=== PATIENT | female | born 1990 | race Caucasian/White ===

== ENCOUNTER 2021-08-25 16:30 | Outpatient (CLI) | payer OTHER ==
--- NOTE | 2021-08-25 17:58 | Ultrasound Report ---
PROCEDURE: OB 14+ Weeks INDICATIONS: UNCERTAIN VIABILITY OUTSIDE/PRIOR DATING DATA: Last menstrual period (LMP): 04/26/2021. LMP-based estimated date of delivery (BART): 01/31/2022. First dating scan (date and location): 07/02/2021 in [place] Estimated date of delivery (BART) from first dating scan: 01/31/2022 by report. TECHNIQUE: Real-time scanning was performed of the fetus, with image documentation and biometric measurements. COMPARISON: None available. FINDINGS: General: A single intrauterine gestation is present. Presentation: Breech Placenta: Placental position is anterior, without previa. Amniotic fluid index: Not evaluated. heart rate: No heart motion was visualized. heart motion was also not detected by M-mode or color Doppler interrogation. Maternal cervical canal: 4.9 cm long; normal length is 2.5 cm or more. biometrics: Biparietal diameter: 3.3 cm, 16 weeks 1 day Head circumference: 12.8 cm, 16 weeks 3 days Abdominal circumference: 10.5 cm, 16 weeks 3 days Femur length: 2.0 cm, 15 weeks 6 days Estimated gestational age from initial scan: 17 weeks 2 days Composite gestational age from present scan: 16 weeks 2 days Estimated weight and percentile: 148 g, 4th percentile Measurement variability for biometric dating: +/- 10 days from 12-20 weeks gestation, +/- 2 weeks fro m 20-30 weeks gestation, +/- 3 weeks for 30 weeks gestation or later. IMPRESSION: 1. Single intrauterine with no heart motion identified suggestive of demise. 2. Findings reported to Dr. Patterson on 08/25/2021 at 5:10 PM by the lead cytogenetic technologist. Reviewed by: Kevin Vann MD on 08/25/2021 5:57 PM PST Approved by: Kevin Vann MD on 08/25/2021 5:57 PM PST Station ID: [id number]
== END 2021-08-25 16:31 | disposition home or self-care (01) ==
LOC: DI 16:30
PROVIDERS: ATTEND Nurse Practitioner Obstetrics & Gynecology
DX: O02.1 Missed abortion (principal); Z3A.16 16 weeks gestation of pregnancy

== ENCOUNTER 2021-08-27 09:01 | Inpatient (IN) | payer OTHER ==
[2021-08-27] MEDS ORDERED: CARBOPROST TROMETHAMINE 250 MCG/ML AMP IM PRN (10:16)
[2021-08-27] MEDS ORDERED: miSOPROStoL 200 MCG TABLET BC PRN (10:16)
[2021-08-27] MEDS ORDERED: miSOPROStoL 100 MCG TABLET VG ONE (10:16)
[2021-08-27] MEDS ORDERED: TRANEXAMIC ACID IN NACL 1,000 MG/100 ML BAG IV PRN (10:16)
[2021-08-27] MEDS ORDERED: METHYLERGONOVINE 0.2 MG/ML VIAL IM PRN (10:16)
[2021-08-27] MEDS ORDERED: LIDOCAINE-MPF 1% 30 ML VIAL ID PRN (10:16)
[2021-08-27] MEDS ORDERED: ONDANSETRON 4 MG/2 ML VIAL IVP PRN ×2 (10:16→12:05)
[2021-08-27] MEDS ORDERED: OXYTOCIN/SODIUM CHLORIDE 500 ML IV PRN (10:16)
[2021-08-27] MEDS ORDERED: OXYTOCIN 10 UNIT/ML VIAL IM PRN (10:16)
[2021-08-27] MEDS ORDERED: SODIUM CHLORIDE FLUSH 0.9% 10 ML SYRINGE IVP PRN (10:16)
[2021-08-27] MEDS ORDERED: fentaNYL 100 MCG/2 ML VIAL IVP PRN (10:16)
--- NOTE | 2021-08-27 10:36 | HISTORY & PHYSICAL EXAMINATION ---
Review of Systems - Constitutional Constitutional: reports: Fatigue. denies: Fever, Chills, Malaise - Eyes Eyes: denies: Pain, Blurred vision - Cardiovascular Cariovascular: denies: Irregular heart rate, Palpitations, Chest pain, Lightheadedness - Respiratory Respiratory: denies: Cough, SOB at rest - Gastrointestinal Gastrointestinal: denies: Constipation, Diarrhea, Change in bowel habits, Nausea, Vomiting - Integumentary Integumentary: denies: Rash, Pruritis - Neurological Neurological: denies: Headache Plan for Labor - Plan For Labor I expect patient to be DC'd or transferred within 96 hours.: Yes Plan for Labor: Rebekah is a 31yo @ 17.4wks gestation by LMP c/w 9.3wk U/S who presents for induction of labor secondary to missed . She presented 08/25/2021 for her initial visit and a bedside ultrasound revealed absence of heart motion. A formal ultrasound was ordered STAT and confirmed demise. She is understandably tearful. She is well supported by her Parker who is at the bedside. Dating criteria: LMP 04/26/2021 BART by LMP 01/31/2022 Initial U/S @ 9.3wks c/w LMP dating. (Did note a moderate-sized subchorionic hemorrhage measuring 6.1 x 1.9x 3.8cm) OB History: G1: 09/01/2017 VAVD @ 41.5wks, [id number], male G2: Current Medications: PNV Allergies: NKDA PMHx: unremarkable Surgical Hx: Leg/Hip (2000) Social Hx: Never smoker. No ETOH or IVDA. Family Hx: Diabetes - MGM, Aunt; AK<55 Father; PE - Father (caused ); CAD - PGF Genetic History: >3 SABs in patient's mother; no other genetic history in either father or mother Physical Exam: Normocephalic, atraumatic Heart RRR w/o M/G/R Lungs CTAB Abdomen soft and nontender Limited bedside transabdominal ultrasound reveals 16.2wk fetus with no heart motion Bilateral LE's no edema Tearful, appropriate Assessment: 31yo @ 17.4wks gestation by LMP, 16.2wks gestation by U/S with demise Blood type: A+ Plan: Admit for induction of labor IV start Initiate misoprostol for labor induction with starting dose of 600mcg VG misoprostol now followed by 400mcg VG misoprostol q 3 hours Epidural per maternal request. call center support representative physician notified and aware of patient and plan of care - acting in supportive role at this time.
[2021-08-27 10:53] LABS: BASOPHILS % (AUTO) 0.5 %; EOSINOPHILS # (AUTO) 0.1 10^3/uL (0.0-0.7); EOSINOPHILS % (AUTO) 0.8 %; HCT - HEMATOCRIT 34.6 % (37.0-47.0); HGB - HEMOGLOBIN 11.5 g/dL (12.0-16.0); LYMPHOCYTES # (AUTO) 1.2 10^3/uL (1.5-3.5); LYMPHOCYTES % (AUTO) 19.6 %; MEAN CORPUSCULAR HEMOGLOBIN 28.8 pg (27.0-31.0); MEAN CORPUSCULAR HGB CONC 33.2 g/dL (32.0-36.0); MEAN CORPUSCULAR VOLUME 86.5 fL (81.0-99.0); MEAN PLATELET VOLUME 10.8 fL (7.9-10.8); MONOCYTES # (AUTO) 0.4 10^3/uL (0.0-1.0); MONOCYTES % (AUTO) 5.9 %; NEUTROPHILS # (AUTO) 4.6 10^3/uL (1.5-6.6); NEUTROPHILS % (AUTO) 72.9 %; PLT - PLATELET COUNT 231 10^3/uL (130-450); RED CELL DISTRIBUTION WIDTH 13.3 % (12.0-15.0); WHITE BLOOD COUNT 6.3 x10^3/uL (4.8-10.8)
[2021-08-27] MEDS ORDERED: LACTATED RINGERS 500 ML IV ONE (11:00)
[2021-08-27] MEDS ORDERED: LACTATED RINGERS 1,000 ML ONE (11:08)
[2021-08-27] MEDS ORDERED: ROPIVACAINE 0.2% 200 MG/100 ML BAG EP ONE (11:11)
[2021-08-27] MEDS: LACTATED RINGERS 1,000 ML IV SCH ×2 (12:00→17:01)
[2021-08-27] MEDS ORDERED: ePHEDrine 50 MG/ML VIAL IVP PRN (12:05)
[2021-08-27] MEDS ORDERED: diphenhydrAMINE INJ 50 MG/ML VIAL IVP PRN (12:05)
[2021-08-27] MEDS ORDERED: METOCLOPRAMIDE 10 MG/2 ML VIAL IVP PRN (12:05)
[2021-08-27] MEDS ORDERED: NALOXONE 0.4 MG/ML VIAL IVP PRN (12:05)
[2021-08-27] MEDS ORDERED: NALBUPHINE 10 MG/ML AMP IVP PRN (12:05)
--- NOTE | 2021-08-27 12:07 | ANESTHESIA ---
Pre-Anesthesia VS, & Labs - Diagnosis demise 17wks - Procedure epidural for Vital Signs: Temp Pulse Resp BP Pulse Ox 36.9 C 64 16 120/53 L 08/27/21 11:48 08/27/21 10:16 08/27/21 10:16 08/27/21 10:16 Height: 5 ft 7.5 in Weight (kg): 97.522 kg Body Mass Index: 33.1 BMI Classification: Obese - NPO Last Fluid Intake: t/o day Last Food Intake: breakfast - Is Patient ?: Yes (demise) - Lab Results Current Lab Results: Laboratory Tests 08/27/21 10:30: WBC 6.3, RBC 4.00 L, Hgb 11.5 L, Hct 34.6 L, MCV 86.5, MCH 28.8, MCHC 33.2, RDW 13.3, Plt Count 231, MPV 10.8, Neut # (Auto) 4.6, Lymph # (Auto) 1.2 L, [place] # (Auto) 0.4, Eos # (Auto) 0.1, Baso # (Auto) 0.0, Absolute Nucleated RBC 0.00, Nucleated RBC % 0.0 Lab results reviewed: Yes Fish Bones: 08/27/21 10:30 Home Medications and Allergies Active Medications Carboprost Tromethamine (Carboprost Tromethamine 250 Mcg/Ml Amp) 250 mcg IM Q15M PRN PRN Reason: Step 4: Hemorrhage protocol Stop: 09/01/21 10:17 Fentanyl (Fentanyl 100 Mcg/2 Ml Vial) 50 mcg IVP Q1H PRN PRN Reason: PAIN Oxytocin/Sodium Chloride (Pitocin/Sodium Chloride) 500 mls @ 999 mls/hr IV PRN PRN; Protocol PRN Reason: POST- HEMORR PREVENTION Stop: 09/01/21 10:17 Tranexamic Acid (Tranexamic 1,000 Mg/100ml-Nacl) 1,000 mg in 100 mls @ 600 mls/hr IV .ONCE PRN PRN Reason: EBL >1200mL and within 3hr Stop: 09/01/21 10:17 Lidocaine HCl (Lidocaine-Mpf 1% 30 Ml Vial) 30 ml ID .ONCE PRN PRN Reason: PERINEAL REPAIR Stop: 09/01/21 10:17 Methylergonovine Maleate (Methylergonovine 0.2 Mg/Ml Vial) 0.2 mg IM .ONCE PRN PRN Reason: Step 2: Hemorrhage protocol Stop: 09/01/21 10:17 Misoprostol (Misoprostol 200 Mcg Tablet) 800 mcg BC .ONCE PRN PRN Reason: Step 3: Hemorrhage protocol Stop: 09/01/21 10:17 Ondansetron HCl (Ondansetron 4 Mg/2 Ml Vial) 4 mg IVP Q4HR PRN PRN Reason: Nausea / Vomiting Oxytocin (Oxytocin 10 Unit/Ml Vial) 10 unit IM .ONCE PRN PRN Reason: Step one: If no IV access Stop: 09/01/21 10:17 Sodium Chloride (Sodium Chloride Flush 0.9% 10 Ml Syringe) 10 ml IVP 0100,0900,1700 LULI Sodium Chloride (Sodium Chloride Flush 0.9% 10 Ml Syringe) 10 ml IVP PRN PRN PRN Reason: NEEDED PER PROVIDER ORDERS Allergies/Adverse Reactions: Allergies Allergy/AdvReac Type Severity Reaction Status Date / Time No Known Drug Allergies Allergy Verified 08/27/21 11:20 Anes History & Medical History - Anesthetic History Anesthesia Complications: reports: No previous complications Family history of Anesthesia Complications: Denies Family history of Malignant Hyperthermia: Denies - Medical History Cardiovascular: reports: None Gastrointestinal: reports: None Urinary: reports: None Neuro: reports: None Smoking Status: Never smoker Exam General: Alert, Oriented x3, Cooperative Dental: WNL Mouth Openin Fingerbreadth Neck Mobility: Normal Mallampati classification: II Respiratory: No respiratory distress Cardiovascular: Regular rate Neurological: Normal speech Mental/Cognitive Status: Alert/Oriented X3, Normal for patient Cognitive Status: Within normal limits Plan Anesthesia Type: Epidural Regional Block: Per Surgeon's request for Post Op pain control Consent for Procedure(s) Verified and Reviewed: Yes Code Status: Attempt Resuscitation ASA classification: 2-Mild systemic disease Is this case an emergency?: No
[2021-08-27] MEDS ORDERED: miSOPROStoL 200 MCG TABLET VG ONE (15:30)
[2021-08-27] MEDS ORDERED: fentaNYL 100 MCG/2 ML VIAL ONE (16:46)
[2021-08-27] MEDS ORDERED: SODIUM CHLORIDE 0.9% 10 ML VIAL IVP ONE (16:46)
[2021-08-27] MEDS ORDERED: LIDOCAINE-MPF 2% 5 ML VIAL ONE (16:46)
[2021-08-27] MEDS ORDERED: SODIUM CHLORIDE FLUSH 0.9% 10 ML SYRINGE IVP SCH (17:00)
--- NOTE | 2021-08-27 17:05 | CONSULTATION NOTE ---
Consultation Report: Call for new pain after Misoprostol dosing at noon. Sensory level assessed at L1. Epidural bolus of 100mcg Fentanyl, 10cc 1%Lidocaine. Pump settings adjusted to 12cc q 45 mins. Epidural bag also changed at this encounter.
[2021-08-27] MEDS ORDERED: miSOPROStoL 200 MCG TABLET BC ONE (18:42)
[2021-08-27] MEDS ORDERED: miSOPROStoL 100 MCG TABLET BC SCH (22:15)
--- NOTE | 2021-08-27 22:27 | PROVIDER PROGRESS NOTE ---
Subjective - Subjective Subjective: S: Feeling comfortable with her epidural. She is tearful understandably. She had a visit from her son which she says made her feel hopeful and improved her mood some. Her Parker is supportive at the bedside. O: S/p 600mcg VG misoprostol x once, then 400mcg BC misoprostol x 3 doses given 3 hours apart. A: 31yo @ 17.4wks gestation by LMP c/w 9.3wk U/S with intrauterine demise Induction of labor A positive P: Continue 400mcg BC misoprostol q 3 hours until delivery Consult with evp chief exploration officer physician. Repeat SVE in 3 hours or sooner PRN. Objective - Vital Signs/Intake & Output Vital Signs: Vital Signs x48h Temp Pulse Pulse Resp BP Pulse Ox 08/27/21 20:34 17 111/53 L 99 08/27/21 20:00 37.6 C 88 18 114/48 L 08/27/21 19:30 86 17 119/49 L 99 08/27/21 19:00 88 18 125/80 08/27/21 18:42 121 H 100 08/27/21 18:30 77 16 118/42 L 100 08/27/21 18:00 75 110/45 L 100 08/27/21 17:35 78 107/56 L 100 08/27/21 17:32 74 89/50 L 100 08/27/21 17:30 67 111/51 L 100 08/27/21 17:00 76 118/43 L 100 08/27/21 16:50 37.0 C 75 14 119/46 L 100 08/27/21 16:30 78 18 123/57 L 100 08/27/21 16:00 117/46 L 08/27/21 15:43 117/68 08/27/21 15:30 37.2 C 77 16 99 08/27/21 14:30 72 114/47 L Intake & Output: Intake & Output 08/24/21 08/25/21 08/26/21 08/27/21 23:59 23:59 23:59 23:59 Intake Total 2199.5 Output Total 1500 Balance 699.5 - Lab Results Fish Bones: 08/27/21 10:30 Other Labs: Lab Results x24hrs 08/27/21 08/27/21 08/27/21 Range/Units 11:17 10:30 10:30 WBC 6.3 (4.8-10.8) x10^3/uL RBC 4.00 L (4.20-5.40) 10^6/uL Hgb 11.5 L (12.0-16.0) g/dL Hct 34.6 L (37.0-47.0) % MCV 86.5 (81.0-99.0) fL MCH 28.8 (27.0-31.0) pg MCHC 33.2 (32.0-36.0) g/dL RDW 13.3 (12.0-15.0) % Plt Count 231 (130-450) 10^3/uL MPV 10.8 (7.9-10.8) fL Neut # (Auto) 4.6 (1.5-6.6) 10^3/uL Lymph # (Auto) 1.2 L (1.5-3.5) 10^3/uL [place] # (Auto) 0.4 (0.0-1.0) 10^3/uL Eos # (Auto) 0.1 (0.0-0.7) 10^3/uL Baso # (Auto) 0.0 (0.0-0.1) 10^3/uL Absolute Nucleated RBC 0.00 x10^3/uL Nucleated RBC % 0.0 /100WBC Blood Type A POSITIVE Blood Type Recheck A POSITIVE Antibody Screen NEGATIVE
[2021-08-27] MEDS: ROPIVACAINE 0.2% 200 MG/100 ML BAG EP PRN (22:29)
[2021-08-28] MEDS: miSOPROStoL 200 MCG TABLET BC SCH ×3 (01:25→08:45)
[2021-08-28] MEDS: LACTATED RINGERS 1,000 ML IV SCH ×2 (02:15→15:44)
[2021-08-28] MEDS: ROPIVACAINE 0.2% 200 MG/100 ML BAG EP PRN ×2 (03:53→15:30)
--- NOTE | 2021-08-28 07:27 | PROVIDER PROGRESS NOTE ---
Subjective - Subjective Subjective: S: Comfortable in bed with epidural. supportive at the bedside. Son sleeping on the sofa bed. Emotionally she is feeling like she just wants the process to be completed but is also understanding and desires to continue with current management plan. O: SVE: head and upper body through cervical os. Skull appears somewhat collapsed. Able to track lower part of fetus into cervical os which is medium consistency at external os and remains 1cm dilated at internal os. s/p 1 dose of 600mcg VG misoprostol and 5 doses of 400mcg BC misoprostol given q 3 hours A: 31yo with missed intrauterine demise at 16.2wks gestation (17.4wks by LMP and initial U/S) Second trimester induction of labor A positive P: Continue expectant management Continue 400mcg BC misoprostol q 3 hours. Consult with physician at 0800. Objective - Vital Signs/Intake & Output Vital Signs: Vital Signs x48h Temp Pulse Resp BP Pulse Ox 08/28/21 06:00 37.1 C 79 17 123/51 L 99 08/28/21 05:30 87 18 123/57 L 08/28/21 05:03 36.8 C 84 19 113/51 L 99 08/28/21 03:30 72 17 106/49 L 08/28/21 03:00 36.9 C 78 16 115/55 L 99 08/28/21 02:30 79 16 119/51 L 08/28/21 02:00 88 17 118/60 08/28/21 01:30 36.9 C 86 18 116/50 L 99 08/28/21 01:18 88 17 104/55 L 08/28/21 01:00 74 16 90/39 L 08/28/21 00:30 76 16 96/43 L 99 08/28/21 00:00 82 18 112/54 L 08/27/21 23:30 90 17 119/53 L Intake & Output: Intake & Output 08/25/21 08/26/21 08/27/21 08/28/21 23:59 23:59 23:59 23:59 Intake Total 2499.5 1073.333 Output Total 1900 550 Balance 599.5 523.333 - Lab Results Fish Bones: 08/27/21 10:30 Other Labs: Lab Results x24hrs 08/27/21 08/27/21 08/27/21 Range/Units 11:17 10:30 10:30 WBC 6.3 (4.8-10.8) x10^3/uL RBC 4.00 L (4.20-5.40) 10^6/uL Hgb 11.5 L (12.0-16.0) g/dL Hct 34.6 L (37.0-47.0) % MCV 86.5 (81.0-99.0) fL MCH 28.8 (27.0-31.0) pg MCHC 33.2 (32.0-36.0) g/dL RDW 13.3 (12.0-15.0) % Plt Count 231 (130-450) 10^3/uL MPV 10.8 (7.9-10.8) fL Neut # (Auto) 4.6 (1.5-6.6) 10^3/uL Lymph # (Auto) 1.2 L (1.5-3.5) 10^3/uL [place] # (Auto) 0.4 (0.0-1.0) 10^3/uL Eos # (Auto) 0.1 (0.0-0.7) 10^3/uL Baso # (Auto) 0.0 (0.0-0.1) 10^3/uL Absolute Nucleated RBC 0.00 x10^3/uL Nucleated RBC % 0.0 /100WBC Blood Type A POSITIVE Blood Type Recheck A POSITIVE Antibody Screen NEGATIVE
[2021-08-28] MEDS ORDERED: miSOPROStoL 200 MCG TABLET BC SCH (13:00)
--- NOTE | 2021-08-28 14:24 | PROVIDER PROGRESS NOTE ---
Subjective - Prog Note Date Prog Note Date: 08/28/21 Prog Note Time: 14:22 - Subjective Subjective: Assumed care from [place] ARRIAGA CNM at approximately 11:00. Patient is a 31 yo who presented for care at [id number] yo attely 17 weeks ega and was found ot have a demise. Patient was seen in clinic on 08/26/21. She is listed in [facility] as Rebekah [place]. had been complicated by first trimester bleeding. She had pres ented to an outside ED at approximately 9 wga for abdominal pain and had a larger than average subchorionic hemorrhage but no other abnormalities. She presented for initial OB at approximately 17 wga and was found to have a demise. She had a confirmatory US. Admitted in 08/27 for induction of labor. Dosing for misoprostol has been the followin/23 12:00 600 mcg VC 15:30 400 mcg VG 18:42 400 mcg BC 22:15 400 mcg BC 08/28 1:25 400 mcg BC 4:48 400 mcg BC 8:45 400 mcg BC Increased dosing to 600 mcg BC Q4H. Comfortable with epidural in place ROS: per HPI, otherwise remaining systems are negative PE: VS: 117/65 GEN: NAD HEENT: NCAT CV: RR RESP: nl effort ABD: S&NT/ND PELVIC: NEFG. Blood show. parts in vagina but not fully passed through the cervix EXT: WWP PSYCH: appropriate affect NEURO: A&O, epidural in place : parts in vaginal but has not passed fully through cervix. A/P: 31 yo at about 16+2 wga with demise IOL: Misoprostol administration as above -Giving miso 600 mcg BC Q4h -consider pitocin if no change in status after this dose. PAIN: Epidural in place -On clears PNC: Late to care -PNL not drawn; ordered today. Includes RPR -APLAS panel drawn for possible contribution to 2nd trimester loss -Had QUAD screen drawn, reviewed limitations of interpretation with patient and recommend cfDNA. Patient agreed and collected today -confirmed Rh positive Patient will take remains for burial Opting to send placenta to pathology Continue inpatient care. Objective - Vital Signs/Intake & Output Vital Signs: Vital Signs x48h Temp Pulse Resp BP Pulse Ox 08/28/21 08:03 74 18 127/55 L 100 08/28/21 07:30 17 130/59 L 08/28/21 07:00 98.4 F 78 16 120/59 L 99 08/28/21 06:30 82 17 107/51 L Intake & Output: Intake & Output 08/25/21 08/26/21 08/27/21 08/28/21 23:59 23:59 23:59 23:59 Intake Total 2499.5 1073.333 Output Total 1900 550 Balance 599.5 523.333 - Lab Results Fish Bones: 08/27/21 10:30 Other Labs: Lab Results x24hrs 08/27/21 Range/Units 11:17 SARS-CoV-2 IgG Ab 5.24 H (<1.00) index
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
[2021-08-28] MEDS ORDERED: OXYTOCIN 10 UNIT/ML VIAL IVP ONE (18:38)
[2021-08-28 19:32] LABS: ESTIMATED AVERAGE GLUCOSE 80 mg/dL (70-100); HEMOGLOBIN A1c% 4.4 % (4.27-6.07)
--- NOTE | 2021-08-28 19:49 | PROVIDER PROGRESS NOTE ---
Subjective - Prog Note Date Prog Note Date: 08/28/21 Prog Note Time: 19:47 - Subjective Subjective: Patient remains comfortable with epidural in place. SVE: 2/long/medium Umbilical cord decompressed but placenta placed high in uterus Has not yet delivered placenta. GIving pitocin 10 mU IM and will give it one hour. Anticipate moving forward with D&C if placenta remains intact in one hour. Objective - Vital Signs/Intake & Output Vital Signs: Vital Signs x48h Temp Pulse Resp BP Pulse Ox 08/28/21 19:00 98.2 F 75 18 145/69 H 100 08/28/21 17:00 98.4 F 86 18 132/64 H 99 08/28/21 15:00 117/65 08/28/21 14:55 120/50 L 08/28/21 12:00 126/60 Intake & Output: Intake & Output 08/25/21 08/26/21 08/27/21 08/28/21 23:59 23:59 23:59 23:59 Intake Total 2499.5 1988.333 Output Total 1900 2550 Balance 599.5 -561.667 - Lab Results Fish Bones: 08/27/21 10:30 Other Labs: Lab Results x24hrs 08/28/21 08/28/21 08/27/21 Range/Units 15:10 15:10 11:17 Estimat Average Glucose 80 (70-100) mg/dL Hemoglobin A1c % 4.4 (4.27-6.07) % Rubella IgG Antibody 13.0 IU/mL SARS-CoV-2 IgG Ab 5.24 H (<1.00) index
[2021-08-28] MEDS ORDERED: ceFAZolin 2 GM in SODIUM CHLORIDE 0.9% 100ML 100 ML IV ONE (21:12)
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
[2021-08-28] MEDS ORDERED: metroNIDAZOLE 500 MG/100 ML 500 MG/100 ML BAG IV SCH (21:13)
[2021-08-28] MEDS ORDERED: LIDOCAINE-PF 2% 10 ML AMP SUBQ ONE (21:29)
[2021-08-28] MEDS ORDERED: fentaNYL 100 MCG/2 ML VIAL ONE (21:52)
[2021-08-28] MEDS ORDERED: LIDOCAINE-MPF 1% 30 ML VIAL ONE (22:10)
[2021-08-28] MEDS ORDERED: BUPIVACAINE 0.5% PF 10 ML VIAL ONE (22:10)
[2021-08-28] MEDS ORDERED: BUPIVACAINE 0.5% PF 30 ML VIAL SUBQ ONE (22:17)
[2021-08-28] MEDS ORDERED: LIDOCAINE 1% 50 ML MDV SUBQ ONE (22:17)
[2021-08-28] MEDS ORDERED: SILVER NITRATE APPLICATOR TOP ONE ×2 (22:17→22:41)
[2021-08-28] MEDS ORDERED: METHYLERGONOVINE 0.2 MG/ML VIAL ONE (22:42)
[2021-08-28] MEDS ORDERED: LACTATED RINGERS 1,000 ML IV ONE (22:47)
[2021-08-28] MEDS ORDERED: MORPHINE 2 MG/ML CARPUJECT IVP PRN (22:56)
[2021-08-28] MEDS ORDERED: fentaNYL 100 MCG/2 ML VIAL IVP PRN (22:56)
[2021-08-28] MEDS ORDERED: ATROPINE ABBOJECT 1 MG/10 ML SYRINGE IVP PRN (22:56)
[2021-08-28] MEDS ORDERED: METOCLOPRAMIDE 10 MG/2 ML VIAL IVP PRN (22:56)
[2021-08-28] MEDS ORDERED: NALOXONE 0.4 MG/ML VIAL IVP PRN (22:56)
[2021-08-28] MEDS ORDERED: HYDROmorphone 0.5 MG/0.5 ML SYRINGE IVP PRN (22:56)
[2021-08-28] MEDS ORDERED: ONDANSETRON 4 MG/2 ML VIAL IVP PRN (22:56)
[2021-08-28] MEDS ORDERED: ePHEDrine 50 MG/ML VIAL IVP PRN (22:56)
--- NOTE | 2021-08-28 22:57 | ANESTHESIA POST OP EVALUATION ---
Anesthesia Post Eval - Post Anesthesia Eval Vitals: Last Vital Signs Temp 36.9 C 08/28/21 21:00 Pulse 78 08/28/21 22:50 Resp 16 08/28/21 22:50 BP 111/64 08/28/21 22:50 Pulse Ox 100 08/28/21 22:50 CV Function Including HR & BP: Stable Pain Control: Satisfactory Nausea & Vomiting: Negative Mental Status: Baseline Respiratory Status: Airway Patent Hydration Status: Satisfactory Anesthesia Complications: None
--- NOTE | 2021-08-28 22:58 | ANESTHESIA ---
Pre-Anesthesia VS, & Labs - Diagnosis retained placenta - Procedure Suction D&C Vital Signs: Temp Pulse Resp BP Pulse Ox 36.9 C 78 16 111/64 100 08/28/21 21:00 08/28/21 22:50 08/28/21 22:50 08/28/21 22:50 08/28/21 22:50 Height: 5 ft 7.5 in Weight (kg): 97.522 kg Body Mass Index: 33.1 BMI Classification: Obese - NPO Other - Is Patient ?: Yes - Lab Results Current Lab Results: Laboratory Tests 08/28/21 15:10: Estimat Average Glucose 80, Hemoglobin A1c % 4.4 08/27/21 11:17: Blood Type A POSITIVE, Antibody Screen NEGATIVE, Crossmatch IS Only See Detail 08/27/21 10:30: Blood Type Recheck A POSITIVE 08/27/21 10:30: WBC 6.3, RBC 4.00 L, Hgb 11.5 L, Hct 34.6 L, MCV 86.5, MCH 28.8, MCHC 33.2, RDW 13.3, Plt Count 231, MPV 10.8, Neut # (Auto) 4.6, Lymph # (Auto) 1.2 L, [place] # (Auto) 0.4, Eos # (Auto) 0.1, Baso # (Auto) 0.0, Absolute Nucleated RBC 0.00, Nucleated RBC % 0.0 Lab results reviewed: Yes Fish Bones: 08/27/21 10:30 Home Medications and Allergies Active Medications Carboprost Tromethamine (Carboprost Tromethamine 250 Mcg/Ml Amp) 250 mcg IM Q15M PRN PRN Reason: Step 4: Hemorrhage protocol Stop: 09/01/21 10:17 Diphenhydramine HCl (Diphenhydramine Inj 50 Mg/Ml Vial) 12.5 - 25 mg IVP Q6HR PRN PRN Reason: ITCHING Ephedrine Sulfate (Ephedrine 50 Mg/Ml Vial) 5 mg IVP Q5M PRN PRN Reason: For SBP<100;give until SBP>100 Fentanyl (Fentanyl 100 Mcg/2 Ml Vial) 50 mcg IVP Q1H PRN PRN Reason: PAIN Oxytocin/Sodium Chloride (Pitocin/Sodium Chloride) 500 mls @ 999 mls/hr IV PRN PRN; Protocol PRN Reason: POST- HEMORR PREVENTION Stop: 09/01/21 10:17 Tranexamic Acid (Tranexamic 1,000 Mg/100ml-Nacl) 1,000 mg in 100 mls @ 600 mls/hr IV .ONCE PRN PRN Reason: EBL >1200mL and within 3hr Stop: 09/01/21 10:17 Ropivacaine (Naropin 0.2%) 200 mg in 100 mls @ 0 mls/hr EP PRN PRN; Protocol PRN Reason: PAIN Last Admin: 08/28/21 15:30 Dose: 10 mls/hr Documented by: Lactated Ringer's (Lr) 1,000 mls @ 100 mls/hr IV .Q10H LULI Last Admin: 08/28/21 15:44 Dose: 100 mls/hr Documented by: Metronidazole (Flagyl 500 Mg/100 Ml) 500 mg in 100 mls @ 100 mls/hr IV ONCE LULI Stop: 08/29/21 21:12 Lidocaine HCl (Lidocaine-Mpf 1% 30 Ml Vial) 30 ml ID .ONCE PRN PRN Reason: PERINEAL REPAIR Stop: 09/01/21 10:17 Methylergonovine Maleate (Methylergonovine 0.2 Mg/Ml Vial) 0.2 mg IM .ONCE PRN PRN Reason: Step 2: Hemorrhage protocol Stop: 09/01/21 10:17 Metoclopramide HCl (Metoclopramide 10 Mg/2 Ml Vial) 10 mg IVP Q6HR PRN PRN Reason: Nausea / Vomiting Misoprostol (Misoprostol 200 Mcg Tablet) 600 mcg BC Q4H LULI Last Admin: 08/28/21 14:00 Dose: 600 mcg Documented by: Nalbuphine HCl (Nalbuphine 10 Mg/Ml Amp) 2.5 - 5 mg IVP Q4H PRN PRN Reason: ITCHING Naloxone HCl (Naloxone 0.4 Mg/Ml Vial) 0.1 mg IVP Q2M PRN PRN Reason: RR<8 Ondansetron HCl (Ondansetron 4 Mg/2 Ml Vial) 4 mg IVP Q4HR PRN PRN Reason: Nausea / Vomiting Ondansetron HCl (Ondansetron 4 Mg/2 Ml Vial) 4 mg IVP Q6HR PRN PRN Reason: Nausea / Vomiting Oxytocin (Oxytocin 10 Unit/Ml Vial) 10 unit IM .ONCE PRN PRN Reason: Step one: If no IV access Stop: 09/01/21 10:17 Sodium Chloride (Sodium Chloride Flush 0.9% 10 Ml Syringe) 10 ml IVP 0100,0900,1700 LULI Sodium Chloride (Sodium Chloride Flush 0.9% 10 Ml Syringe) 10 ml IVP PRN PRN PRN Reason: NEEDED PER PROVIDER ORDERS Allergies/Adverse Reactions: Allergies Allergy/AdvReac Type Severity Reaction Status Date / Time No Known Drug Allergies Allergy Verified 08/27/21 11:20 Anes History & Medical History - Anesthetic History Anesthesia Complications: reports: No previous complications Family history of Anesthesia Complications: Denies Family history of Malignant Hyperthermia: Denies - Medical History Cardiovascular: reports: None Gastrointestinal: reports: None Urinary: reports: None Neuro: reports: None Smoking Status: Never smoker Exam General: Alert, Oriented x3, Cooperative, No acute distress Dental: WNL Plan Anesthesia Type: Epidural Consent for Procedure(s) Verified and Reviewed: Yes Code Status: Attempt Resuscitation ASA classification: 2-Mild systemic disease Is this case an emergency?: Yes
[2021-08-28] MEDS ORDERED: LACTATED RINGERS 1,000 ML IV SCH (23:00)
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
[2021-08-28] MEDS ORDERED: oxyCODONE/ACET 5/325 Prepack 4 PO STA (23:02)
[2021-08-28] MEDS ORDERED: MEASLES,MUMPS & RUBELLA VACC 0.5 ML VIAL SUBQ ONE (23:02)
--- NOTE | 2021-08-29 01:13 | Discharge Plan ---
Discharge Plan Problem Reviewed?: Yes Disposition: Home, Self Care Condition: Good Prescriptions: Acetaminophen [Acetaminophen Extra Strength] 1,000 mg PO Q8H PRN #60 tablet PRN Reason: Pain Docusate Sodium 100Mg Capsule [Colace 100Mg Capsule] 100 - 200 mg PO BID PRN #60 cap PRN Reason: Constipation Ibuprofen [Motrin] 600 mg PO Q6H PRN #60 tab PRN Reason: Pain Diet: Regular Activity Restrictions: Additional Comments Shower Restrictions: Yes (No tub baths or hot tubs for 4 weeks) Additional Instructions or Follow Up instructions: Nothing in the vagina for 6 weeks: No intercourse, tampons, douching Call for: -Fever greater than 100.5 -Pain that does not improve with pain medication -Heavy bleeding in which you are soaking a pad an hour for 2 hours in a row -Pain in the legs (especially one sided), swelling in one leg and not the other, or difficulty/pain with breathing. No tub baths or hot tubs for 4 weeks No Smoking: If you smoke, Please STOP! Call for help. Follow-up with: Jenn Carlson MD [Provider Admit Priv/Credential] -
[2021-08-29 02:23] VITALS: BP 118/54
[2021-08-29 12:41] LABS: HEPATITIS B SURFACE ANTIGEN NON-REACTIVE (NON-REACTIVE); HEPATITIS C ANTIBODY NON-REACTIVE (NON-REACTIVE)
[2021-08-30 12:51] LABS: HIV AG/AB 4TH GEN NON-REACTIVE (NON-REACTIVE)
[2021-09-01 08:36] LABS: AFP MOM 1.58; AGE RISK DOWN SYNDROME 1 IN 486; CALC'D GESTATIONAL AGE 17.6 weeks; CIGARETTE SMOKER? NOT GIVEN; DONOR AGE: EGG RETRIEVAL NOT GIVEN; DONOR EGG NO; ESTRIOL MOM <0.09; HX OF NEURAL TUBE DEFECTS NO; INHIBIN A MOM 0.51; INSULIN DEPEND DIABETIC NO; MATERNAL WEIGHT 229 lbs; MSS DOWN SYNDROME RISK 1 IN 602; MSS3 TRISOMY 18 RISK 1 IN 204; NUMBER OF FETUSES 1; PREV PREGNANCY DOWN SYND NO; RISK FOR ONTD 1 IN 2212
--- NOTE | 2021-09-01 12:19 | PROVIDER PROGRESS NOTE ---
Subjective - Prog Note Date Prog Note Date: 08/29/21 Prog Note Time: 01:30 - Subjective Subjective: Patient was doing well post op. Up and ambulating. Tolerating po. Voiding. Pain well managed. Bleeding minimal/ remains were packaged for burial. Patient desires discharge to home Objective - Vital Signs/Intake & Output Reviewed Vital Signs: Yes Vital Signs: 118/54 77 98.6 Intake & Output: Intake & Output 08/29/21 08/30/21 08/31/21 09/01/21 23:59 23:59 23:59 23:59 Output Total 250 Balance -250 - Objective General Appearance: positive: No acute distress Respiratory: positive: No respiratory distress, Breath sounds nml Cardiovascular: positive: Regular rate & rhythm Abdomen: positive: Non-tender, No distention, Other (soft) Skin: positive: Color nml Extremities: positive: Non-tender, No pedal edema Neurologic/Psychiatric: positive: Oriented x3, Other (appropriate affect) - Lab Results Fish Bones: 08/27/21 10:30 Other Labs: Lab Results x24hrs 08/27/21 Range/Units 11:17 Family Origin of Mother OTHER Repeat Sample NO Gestational Age (Calc) 17.6 weeks Estimated Delivery Date 01/31/2022 Est Date Determined By LMP Maternal Weight (lbs) 229 lbs Insulin Depend Diabetes NO Cigarette Smoker (Maternal) Text NOT GIVEN Down Syndrome History NO Number of Fetuses 1 IVF NOT GIVEN Donor Age or NOT GIVEN Quad Test Interpret SEE NOTE Maternal AFP Screen 51.7 ng/mL AFP MoM 1.58 Maternal Serum HCG 20.00 IU/mL HCG Adjusted MoM 0.90 Unconj (Free) Estriol <0.10 ng/mL Unconj Estriol MoM <0.09 Inhibin A MoM 0.51 Mater Dimeric Inhibin A 66 pg/mL Triple Test Comments SEE NOTE Down's Maternal Age Risk 1 IN 486 Down Syndrome Risk 1 IN 602 Trisomy 13 Risk 1 IN 204 Mother History NTD NO NTD Risk 1 IN 2212 Maternal Scrn Comment See Below Assessment/Plan - Problem List (1) Retained placenta Impression: Patient is s/p suciton D&C Placenta removed in entirety Recovering well from procedure (2) demise Impression: 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 -S/p Suction D&C -Remains released to family for burial Rh positive Rubella non-immue, declined MMR Warning signs reviewed DC to home FU in clinic in one week
== END 2021-08-29 02:20 | disposition home or self-care (01) | DRG 770 ==
LOC: FBP 09:01 → WFO 09:01 → OBS 09:04 → WFO 09:04 → OBS 10:15 → WFO 10:15 → UNDOADMIN 10:16 → OBS 10:16 → UNDODISIN 08-29 02:20
PROVIDERS: ADMIT Nurse Practitioner Obstetrics & Gynecology; ATTEND Nurse Practitioner Obstetrics & Gynecology
PROC: 3E0P7VZ Introduction of Hormone into Female Reproductive, Via Natural or Artificial Opening (ICD-10-PCS; 2021-08-27)
PROC: 3E033VJ Introduction of Other Hormone into Peripheral Vein, Percutaneous Approach (ICD-10-PCS; 2021-08-27)
PROC: 10D17ZZ Extraction of Products of Conception, Retained, Via Natural or Artificial Opening (ICD-10-PCS; 2021-08-28)
PROC: 3E0234Z Introduction of Serum, Toxoid and Vaccine into Muscle, Percutaneous Approach (ICD-10-PCS; 2021-08-28)
PROC: 10E0XZZ Delivery of Products of Conception, External Approach (ICD-10-PCS; principal; 2021-08-28 21:30)
DX: O02.1 Missed abortion (principal); O73.0 Retained placenta without hemorrhage; Z3A.17 17 weeks gestation of pregnancy; Z23 Encounter for immunization
CPT/HCPCS: 36415; 81511; 81599; 83036; 85025; 85613; 85730; 86146; 86147; 86592; 86762; 86769; 86803; 86850; 86900; 86901; 86920; 87340; 87389; A9270; J2210; J7120

== ENCOUNTER 2021-09-15 15:41 | Outpatient (CLI) | payer OTHER ==
[2021-09-15 16:11] LABS: HCT - HEMATOCRIT 36.7 % (37.0-47.0); HGB - HEMOGLOBIN 12.3 g/dL (12.0-16.0); MEAN CORPUSCULAR HEMOGLOBIN 28.3 pg (27.0-31.0); MEAN CORPUSCULAR HGB CONC 33.5 g/dL (32.0-36.0); MEAN CORPUSCULAR VOLUME 84.6 fL (81.0-99.0); MEAN PLATELET VOLUME 10.3 fL (7.9-10.8); RED BLOOD COUNT 4.34 10^6/uL (4.20-5.40); RED CELL DISTRIBUTION WIDTH 12.7 % (12.0-15.0); WHITE BLOOD COUNT 7.1 x10^3/uL (4.8-10.8)
[2021-09-15 16:37] LABS: THYROID STIMULATING HORMONE 1.68 uIU/mL (0.34-5.60)
[2021-09-15 16:39] LABS: FREE T4 (FREE THYROXINE) 0.96 ng/dL (0.58-1.64)
== END 2021-09-15 15:42 | disposition home or self-care (01) ==
LOC: LAB 15:41
PROVIDERS: ATTEND Nurse Practitioner Obstetrics & Gynecology
DX: R00.0 Tachycardia, unspecified (principal)
CPT/HCPCS: 36415; 84439; 84443; 85027

== ENCOUNTER 2021-09-18 15:14 | Outpatient (CLI) | payer OTHER | END 2021-09-18 15:15 | disposition home or self-care (01) | LOC: LAB 15:14 | PROVIDERS: ATTEND Nurse Practitioner Obstetrics & Gynecology | DX: R00.0 Tachycardia, unspecified (principal); O36.4XX0 Maternal care for intrauterine death, not applicable or unspecified | CPT/HCPCS: 36415; 81599; 83789; 84144 ==

== ENCOUNTER 2021-09-29 14:53 | Outpatient (CLI) | payer OTHER ==
[2021-09-29 16:53] LABS: ALBUMIN 3.9 g/dL (3.2-5.5); ALBUMIN/GLOBULIN RATIO 1.3 (1.0-2.2); BILIRUBIN,TOTAL 0.4 mg/dL (0.2-1.0); CALCIUM 8.9 mg/dL (8.5-10.3); CREATININE 0.6 mg/dL (0.4-1.0); POTASSIUM 3.9 mmol/L (3.5-5.0); TOTAL PROTEIN 6.8 g/dL (6.7-8.2)
== END 2021-09-29 14:54 | disposition home or self-care (01) ==
LOC: LAB 14:53
PROVIDERS: ATTEND Nurse Practitioner Obstetrics & Gynecology
DX: R00.0 Tachycardia, unspecified (principal); O36.4XX0 Maternal care for intrauterine death, not applicable or unspecified
CPT/HCPCS: 36415; 80053; 81599; 84144; 84702; 86762

== ENCOUNTER 2022-05-14 13:32 | Outpatient (CLI) | payer OTHER ==
[2022-05-14 13:53] LABS: BASOPHILS % (AUTO) 0.6 %; EOSINOPHILS # (AUTO) 0.1 10^3/uL (0.0-0.7); EOSINOPHILS % (AUTO) 1.8 %; HCT - HEMATOCRIT 32.1 % (37.0-47.0); LYMPHOCYTES # (AUTO) 1.7 10^3/uL (1.5-3.5); LYMPHOCYTES % (AUTO) 24.2 %; MEAN CORPUSCULAR HEMOGLOBIN 26.9 pg (27.0-31.0); MEAN CORPUSCULAR HGB CONC 34.3 g/dL (32.0-36.0); MEAN CORPUSCULAR VOLUME 78.5 fL (81.0-99.0); MEAN PLATELET VOLUME 10.2 fL (7.9-10.8); MONOCYTES # (AUTO) 0.5 10^3/uL (0.0-1.0); MONOCYTES % (AUTO) 6.8 %; NEUTROPHILS # (AUTO) 4.7 10^3/uL (1.5-6.6); NEUTROPHILS % (AUTO) 66.3 %; PLT - PLATELET COUNT 249 10^3/uL (130-450); RED BLOOD COUNT 4.09 10^6/uL (4.20-5.40); RED CELL DISTRIBUTION WIDTH 14.1 % (12.0-15.0); WHITE BLOOD COUNT 7.1 x10^3/uL (4.8-10.8)
[2022-05-15 06:08] LABS: HBsAG SCREEN Negative (Negative); HCV AB 0.4 s/co ratio (0.0-0.9)
[2022-05-15 08:10] LABS: RPR Non Reactive (Non Reactive)
[2022-05-15 09:09] LABS: VARICELLA-ZOSTER AB IGG <135 index (Immune >165)
[2022-05-15 10:08] LABS: HIV SCREEN 4TH GENERATION Non Reactive (Non Reactive)
== END 2022-05-14 13:33 | disposition home or self-care (01) ==
LOC: LAB 13:32
PROVIDERS: ATTEND Nurse Practitioner Obstetrics & Gynecology
DX: Z36.89 Encounter for other specified antenatal screening (principal)
CPT/HCPCS: 36415; 85025; 86592; 86762; 86787; 86803; 86850; 86900; 86901; 87340; 87389

== ENCOUNTER 2022-08-31 13:10 | Outpatient (CLI) | payer OTHER ==
[2022-08-31 14:21] LABS: HCT - HEMATOCRIT 28.4 % (37.0-47.0); MEAN CORPUSCULAR HEMOGLOBIN 25.8 pg (27.0-31.0); MEAN CORPUSCULAR HGB CONC 31.7 g/dL (32.0-36.0); MEAN CORPUSCULAR VOLUME 81.4 fL (81.0-99.0); RED BLOOD COUNT 3.49 10^6/uL (4.20-5.40); RED CELL DISTRIBUTION WIDTH 14.2 % (12.0-15.0); WHITE BLOOD COUNT 8.8 x10^3/uL (4.8-10.8)
== END 2022-08-31 13:11 | disposition home or self-care (01) ==
LOC: LAB 13:10
PROVIDERS: ATTEND Nurse Practitioner Obstetrics & Gynecology
DX: Z36.9 Encounter for antenatal screening, unspecified (principal)
CPT/HCPCS: 36415; 82950; 85027

== ENCOUNTER 2022-09-02 14:06 | Outpatient (CLI) | payer OTHER ==
[2022-09-02] MEDS ORDERED: FERRIC GLUCONATE 125 MG in SODIUM CHLORIDE 0.9% 100ML 100 ML IV ONE (14:11)
[2022-09-02 15:00] VITALS: BP 126/61
== END 2022-09-02 16:36 | disposition home or self-care (01) ==
LOC: WFO 14:06 → FBP 14:08 → WFO 16:36
PROVIDERS: ATTEND Obstetrics & Gynecology
DX: O99.019 Anemia complicating pregnancy, unspecified trimester (principal)
CPT/HCPCS: 96365; J2916

== ENCOUNTER 2022-10-06 16:00 | Outpatient (CLI) | payer BC ==
[2022-10-06 16:22] LABS: HCT - HEMATOCRIT 28.8 % (37.0-47.0); HGB - HEMOGLOBIN 9.2 g/dL (12.0-16.0); MEAN CORPUSCULAR HEMOGLOBIN 25.6 pg (27.0-31.0); MEAN CORPUSCULAR HGB CONC 31.9 g/dL (32.0-36.0); MEAN CORPUSCULAR VOLUME 80.2 fL (81.0-99.0); RED BLOOD COUNT 3.59 10^6/uL (4.20-5.40); WHITE BLOOD COUNT 7.1 x10^3/uL (4.8-10.8)
== END 2022-10-06 16:01 | disposition home or self-care (01) ==
LOC: LAB 16:00
PROVIDERS: ATTEND Nurse Practitioner Obstetrics & Gynecology
DX: O99.013 Anemia complicating pregnancy, third trimester (principal)
CPT/HCPCS: 36415; 85027

== ENCOUNTER 2022-10-22 14:34 | Outpatient (CLI) | payer BC ==
[2022-10-22] MEDS ORDERED: FERRIC GLUCONATE 125 MG in SODIUM CHLORIDE 0.9% 100ML 100 ML IV ONE (14:42)
[2022-10-22 14:56] VITALS: BP 127/54
== END 2022-10-22 17:02 | disposition home or self-care (01) ==
LOC: WFO 14:34 → FBP 14:34 → WFO 17:02
PROVIDERS: ATTEND Nurse Practitioner Obstetrics & Gynecology
DX: O99.013 Anemia complicating pregnancy, third trimester (principal); Z3A.00 Weeks of gestation of pregnancy not specified
CPT/HCPCS: 96365; J2916

== ENCOUNTER 2022-11-12 08:53 | Outpatient (CLI) | payer BC ==
[2022-11-12] MEDS ORDERED: SODIUM CHLORIDE FLUSH 0.9% 10 ML SYRINGE IVP PRN (09:05)
[2022-11-12] MEDS ORDERED: TERBUTALINE 1 MG/ML VIAL SUBQ PRN (09:05)
[2022-11-12] MEDS ORDERED: fentaNYL 100 MCG/2 ML VIAL IVP PRN (09:05)
[2022-11-12] MEDS ORDERED: ONDANSETRON 4 MG/2 ML VIAL IVP PRN (09:05)
--- NOTE | 2022-11-12 09:25 | HISTORY & PHYSICAL EXAMINATION ---
Admit History - : 3 Parity: 1 : 1 Care: positive: [facility] Smoking Status: Never smoker - Other Maternal History Other Maternal History: HPI: Patient is a 32-year-old -0-1-1 at 38 weeks 6 days gestation presenting for external cephalic version. She has good movement. Denies loss of fluid. No LEMON/BV or RUQP. No vaginal bleeding. Denies nausea and vomiting. Denies urinary urgency or dysuria. All other symptoms reviewed and were negative except per HPI. PMH Unremarkable PSH Leg hip surgery, 2000 OB History -0-1-1 1. 09/01/2017, vacuum-assisted vaginal delivery, 41 weeks 5 days, 7 pounds 15 ounces, male 2. 10/29/2020, demise, 17 weeks 4 days SH Denies tobacco, alcohol, drugs Family History Maternal grandmother: Diabetes Aunt, diabetes Father: [place], pulmonary embolism Paternal grandfather:: Coronary artery disease Allergies No known drug allergies Medications vitamins Physical exam: General: Alert, oriented, no acute distress Head: Normal cephalic atraumatic Eyes: PERRLA, extraocular motions intact. Respiratory: Normal rate of respiration. No accessory muscle use, normal respiratory effort. Cardiovascular: Regular rate and rhythm Abdomen: Gravid, nontender, nondistended Extremities: Normal range of motion Neuro: Oriented x3. Normal movements Psych: Appropriate mood and affect. Normal judgment and insight Bedside ultrasound: Siddharth breech presentation, head to maternal right, spine up FHT: 150 beats minute baseline, moderate variability, accelerations present, no decelerations. Reactive NST (Performed 11/12/22, read 11/12/22) [place]: Quiescent Plan 32-year-old -0-1-1 at 38 weeks 6 days gestation presents for her external cephalic version 1. malpresentation -Plan for external cephalic version. Patient was counseled the risk, benefits, alternatives of external cephalic version. Patient was offered primary section, but discussed the risks of surgery or greater than vaginal delivery, but likely safer for her fetus. The overall risk was discussed at an adverse event at approximately 5 to 6%. Risk of major events was far less than 1%. The greatest risk is changes in heart rate which are usually transitory. She agrees and would like to proceed with version. She does not want a regional block for this. We discussed that this could increase chance of success, but she would like to try without it. 2. 38 weeks gestation 3. History of 17-week IUFD. Meds/Allgy - Home Medications Home Medications: Ambulatory Orders Medication Instructions Recorded Confirmed Acetaminophen [Acetaminophen Extra 1,000 mg PO Q8H PRN #60 tablet 08/28/21 Strength] Docusate Sodium 100Mg Capsule 100 - 200 mg PO BID PRN #60 cap 08/28/21 [Colace 100Mg Capsule] Ibuprofen [Motrin] 600 mg PO Q6H PRN #60 tab 08/28/21 - Allergies Allergies/Adverse Reactions: Allergies Allergy/AdvReac Type Severity Reaction Status Date / Time No Known Drug Allergies Allergy Verified 08/27/21 11:20
[2022-11-12 09:26] VITALS: BP 123/66
[2022-11-12 09:40] LABS: BASOPHILS % (AUTO) 0.5 %; EOSINOPHILS # (AUTO) 0.1 10^3/uL (0.0-0.7); EOSINOPHILS % (AUTO) 1.1 %; HCT - HEMATOCRIT 28.9 % (37.0-47.0); HGB - HEMOGLOBIN 9.4 g/dL (12.0-16.0); LYMPHOCYTES # (AUTO) 1.2 10^3/uL (1.5-3.5); LYMPHOCYTES % (AUTO) 20.5 %; MEAN CORPUSCULAR HEMOGLOBIN 25.5 pg (27.0-31.0); MEAN CORPUSCULAR HGB CONC 32.5 g/dL (32.0-36.0); MEAN CORPUSCULAR VOLUME 78.3 fL (81.0-99.0); MEAN PLATELET VOLUME 10.8 fL (7.9-10.8); MONOCYTES # (AUTO) 0.5 10^3/uL (0.0-1.0); MONOCYTES % (AUTO) 8.2 %; NEUTROPHILS # (AUTO) 3.9 10^3/uL (1.5-6.6); NEUTROPHILS % (AUTO) 68.8 %; PLT - PLATELET COUNT 205 10^3/uL (130-450); RED BLOOD COUNT 3.69 10^6/uL (4.20-5.40); RED CELL DISTRIBUTION WIDTH 15.9 % (12.0-15.0); WHITE BLOOD COUNT 5.6 x10^3/uL (4.8-10.8)
[2022-11-12] MEDS ORDERED: MINERAL OIL LIGHT 10 ML TOP SCH (10:00)
[2022-11-12] MEDS ORDERED: FERRIC GLUCONATE 125 MG in SODIUM CHLORIDE 0.9% 100ML 100 ML IV ONE (10:05)
--- NOTE | 2022-11-12 12:00 | PROCEDURE REPORT ---
Hospitalist Procedure Note - Procedure Note Procedure Note: Procedure date: 11/12/2022 Procedure: External cephalic version Indication: Breech presentation, 38 weeks gestation Patient consent: Patient consented to the risks of external cephalic version including the risk of heart rate changes, bleeding, placental abruption, rupture membranes, emergency section, cord prolapse, hemorrhage, stillbirth. Discussed the benefits [place] avoiding a planned section. Discussed we are not successful we will abandon procedure and plan a section. Patient agrees to this and desires to proceed. Anesthesia: None Complications: None Estimated blood loss: None Postop diagnosis: Successful external cephalic version, cephalic presentation, 38 weeks gestation Procedure summary: Patient is a 32-year-old -0-1-1 at 38 weeks 6 days gestation who presented for an external cephalic version for breech presentation. Fetus has been variable and was cephalic last week and the week prior at 36 and 37 weeks. She has been coughing a lot and noted to be on hands and knees coughing then felt hiccups in a different location. She was taken to the triage room where spinal anesthesia was adequate. Under ultrasound guidance, the fetus was noted to be in breech presentation with head to maternal right upper quadrant and baby in opal breech position. The patient was given terbutaline for uterine relaxation. Using gentle, steady pressure, the head was rotated counterclockwise as the buttocks was lifted out of the pelvis. Intermittent ultrasound was used to confirm movement. Overall the procedure took approximately 10 minutes. Ultrasound confirmed cephalic presentation. A belly binder was placed until the effects of the terbutaline wore off. Patient was monitored with a reactive NST after the procedure. I appreciate the assistance of BART Cat during this procedure, and the assistance in retraction, visualization, dissection, and overall assistance during the case were instrumental to the patient's wellbeing.
--- NOTE | 2022-11-12 15:24 | PROVIDER PROGRESS NOTE ---
Subjective - Subjective Subjective: After terbutaline was given adequate time to wear off, ultrasound was performed again, and noted that the fetus had returned to breech presentation. Cervix was examined and found to be closed. Discussed the patient that we will likely try a version again next week, ideally a time where cervix is more dilated and we are able to break water after cephalic presentation. We did discuss that if she labors, this will become an more urgent matter. If her water breaks, also likely make it possible for version and that she should come urgently as the risk of prolapse is greater with a breech presentation. Patient has a follow-up appointment [facility] on Tuesday. Objective - Vital Signs/Intake & Output Vital Signs: Vital Signs x48h Temp Pulse Resp BP 11/12/22 12:15 98.8 F 99 18 123/66 11/12/22 09:07 98.8 F 99 18 123/66 Intake & Output: Intake & Output 11/09/22 11/10/22 11/11/22 11/12/22 23:59 23:59 23:59 23:59 Intake Total 110 Balance 110 - Lab Results Fish Bones: 11/12/22 09:28 Other Labs: Lab Results x24hrs 11/12/22 Range/Units 09:28 WBC 5.6 (4.8-10.8) x10^3/uL RBC 3.69 L (4.20-5.40) 10^6/uL Hgb 9.4 L (12.0-16.0) g/dL Hct 28.9 L (37.0-47.0) % MCV 78.3 L (81.0-99.0) fL MCH 25.5 L (27.0-31.0) pg MCHC 32.5 (32.0-36.0) g/dL RDW 15.9 H (12.0-15.0) % Plt Count 205 (130-450) 10^3/uL MPV 10.8 (7.9-10.8) fL Neut # (Auto) 3.9 (1.5-6.6) 10^3/uL Lymph # (Auto) 1.2 L (1.5-3.5) 10^3/uL [place] # (Auto) 0.5 (0.0-1.0) 10^3/uL Eos # (Auto) 0.1 (0.0-0.7) 10^3/uL Baso # (Auto) 0.0 (0.0-0.1) 10^3/uL Absolute Nucleated RBC 0.00 x10^3/uL Nucleated RBC % 0.0 /100WBC
--- NOTE | 2022-11-19 15:45 | PROVIDER PROGRESS NOTE ---
Subjective - Subjective Subjective: Pt tolerating infusion well. FINAL DIAGNOSIS: Anemia complicating , third trimester Objective - Lab Results Fish Bones: 11/12/22 09:28
== END 2022-11-12 12:10 | disposition home or self-care (01) ==
LOC: WFO 08:53 → FBP 08:56 → WFO 12:10
PROVIDERS: ATTEND Obstetrics & Gynecology
DX: O32.1XX0 Maternal care for breech presentation, not applicable or unspecified (principal); O99.013 Anemia complicating pregnancy, third trimester; Z3A.38 38 weeks gestation of pregnancy
CPT/HCPCS: 59025; 59412; 85025; 96365; J2916; 86850; 86900; 86901

== ENCOUNTER 2022-11-19 15:59 | Outpatient (CLI) | payer BC ==
[2022-11-19] MEDS ORDERED: LACTATED RINGERS 1,000 ML ONE (16:13)
[2022-11-19] MEDS ORDERED: LACTATED RINGERS 1,000 ML IV SCH (17:00)
[2022-11-19 17:13] LABS: BASOPHILS % (AUTO) 0.2 %; EOSINOPHILS # (AUTO) 0.1 10^3/uL (0.0-0.7); EOSINOPHILS % (AUTO) 1.1 %; HCT - HEMATOCRIT 31.1 % (37.0-47.0); LYMPHOCYTES # (AUTO) 1.3 10^3/uL (1.5-3.5); LYMPHOCYTES % (AUTO) 20.8 %; MEAN CORPUSCULAR HEMOGLOBIN 25.7 pg (27.0-31.0); MEAN CORPUSCULAR HGB CONC 32.2 g/dL (32.0-36.0); MEAN CORPUSCULAR VOLUME 79.9 fL (81.0-99.0); MEAN PLATELET VOLUME 11.2 fL (7.9-10.8); MONOCYTES # (AUTO) 0.4 10^3/uL (0.0-1.0); MONOCYTES % (AUTO) 6.9 %; NEUTROPHILS # (AUTO) 4.4 10^3/uL (1.5-6.6); NEUTROPHILS % (AUTO) 70.4 %; PLT - PLATELET COUNT 207 10^3/uL (130-450); RED BLOOD COUNT 3.89 10^6/uL (4.20-5.40); RED CELL DISTRIBUTION WIDTH 16.6 % (12.0-15.0); WHITE BLOOD COUNT 6.2 x10^3/uL (4.8-10.8)
--- NOTE | 2022-11-19 18:36 | HISTORY & PHYSICAL EXAMINATION ---
Admit History - : 3 Parity: 1 : 1 Smoking Status: Never smoker - Other Maternal History Other Maternal History: HPI: Patient is a 32-year-old -0-1-1 at 39 weeks 6 days gestation presenting for external cephalic version. She has good movement. Denies loss of fluid. No LEMON/BV or RUQP. No vaginal bleeding. Denies nausea and vomiting. Denies urinary urgency or dysuria. All other symptoms reviewed and were negative except per HPI. PMH Unremarkable PSH Leg hip surgery, 2000 OB History -0-1-1 1. 09/01/2017, vacuum-assisted vaginal delivery, 41 weeks 5 days, 7 pounds 15 ounces, male 2. 10/29/2020, demise, 17 weeks 4 days SH Denies tobacco, alcohol, drugs Family History Maternal grandmother: Diabetes Aunt, diabetes Father: [place], pulmonary embolism Paternal grandfather:: Coronary artery disease Allergies No known drug allergies Medications vitamins Physical exam: General: Alert, oriented, no acute distress Head: Normal cephalic atraumatic Eyes: PERRLA, extraocular motions intact. Respiratory: Normal rate of respiration. No accessory muscle use, normal respiratory effort. Cardiovascular: Regular rate and rhythm Abdomen: Gravid, nontender, nondistended Extremities: Normal range of motion Neuro: Oriented x3. Normal movements Psych: Appropriate mood and affect. Normal judgment and insight Bedside ultrasound: Siddharth breech presentation, head to maternal right, spine up FHT: 150 beats minute baseline, moderate variability, accelerations present, no decelerations. Reactive NST (Performed 11/19/22, read 11/19/22) [place]: Quiescent Ultrasound: Breech presentation with head to maternal right. Plan 32-year-old -0-1-1 at 38 weeks 6 days gestation presents for her external cephalic version 1. malpresentation -Plan for external cephalic version. Patient was counseled the risk, benefits, alternatives of external cephalic version. Patient was offered primary section, but discussed the risks of surgery or greater than vaginal delivery, but likely safer for her fetus. The overall risk was discussed at an adverse event at approximately 5 to 6%. Risk of major events was far less than 1%. The greatest risk is changes in heart rate which are usually transitory. She agrees and would like to proceed with version. She does not want a regional block for this. We discussed that this could increase chance of success, but she would like to try without it. Successful previously without epidural, but subsequently turned again. 2. 39 weeks gestation 3. History of 17-week IUFD. Meds/Allgy - Home Medications Home Medications: Ambulatory Orders Medication Instructions Recorded Confirmed Acetaminophen [Acetaminophen Extra 1,000 mg PO Q8H PRN #60 tablet 08/28/21 Strength] Docusate Sodium 100Mg Capsule 100 - 200 mg PO BID PRN #60 cap 08/28/21 [Colace 100Mg Capsule] Ibuprofen [Motrin] 600 mg PO Q6H PRN #60 tab 08/28/21 - Allergies Allergies/Adverse Reactions: Allergies Allergy/AdvReac Type Severity Reaction Status Date / Time No Known Drug Allergies Allergy Verified 08/27/21 11:20 Physical - Abdominal Exam Vital Signs: Temp Pulse Resp BP Pulse Ox O2 Flow Rate 209.5 F H 74 20 132/64 H 98 11/19/22 16:28 11/19/22 16:28 11/19/22 16:28 11/19/22 16:28 11/19/22 16:28
[2022-11-19] MEDS ORDERED: TERBUTALINE 1 MG/ML VIAL SUBQ PRN (18:39)
[2022-11-19] MEDS ORDERED: TERBUTALINE 1 MG/ML VIAL SUBQ ONE (18:42)
--- NOTE | 2022-11-19 19:09 | PROCEDURE REPORT ---
Hospitalist Procedure Note - Procedure Note Procedure Note: Procedure date: 11/19/2022 Procedure: External cephalic version Indication: Breech presentation, 39 weeks gestation Patient consent: Patient consented to the risks of external cephalic version including the risk of heart rate changes, bleeding, placental abruption, rupture membranes, emergency section, cord prolapse, hemorrhage, stillbirth. Discussed the benefits [place] avoiding a planned section. Discussed we are not successful we will abandon procedure and plan a section. Patient agrees to this and desires to proceed. Anesthesia: None Complications: None Estimated blood loss: None Postop diagnosis: Successful external cephalic version, cephalic presentation, 38 weeks gestation Procedure summary: Patient is a 32-year-old -0-1-1 at 39 weeks 6 days gestation who presented for an external cephalic version for breech presentation. Attempt was made last week and was successful, but baby subsequently turned to breech again. She was taken to the triage room where spinal anesthesia was adequate. Under ultrasound guidance, the fetus was noted to be in breech presentation with head to maternal right upper quadrant and baby in opal breech position. The patient was given terbutaline for uterine relaxation. Using gentle, steady pressure, the head was rotated counterclockwise as the buttocks was lifted out of the pelvis. Intermittent ultrasound was used to confirm movement. Overall the procedure took approximately 6 minutes. Ultrasound confirmed cephalic presentation. Patient was monitored with a reactive NST after the procedure. I appreciate the assistance of BART Cat during this procedure, and the assistance in retraction, visualization, dissection, and overall assistance during the case were instrumental to the patient's wellbeing.
[2022-11-19 21:11] VITALS: BP 139/70
== END 2022-11-19 20:15 | disposition home or self-care (01) ==
LOC: WFO 15:59 → FBP 16:02 → WFO 20:15
PROVIDERS: ATTEND Obstetrics & Gynecology
DX: O32.1XX0 Maternal care for breech presentation, not applicable or unspecified (principal); Z3A.39 39 weeks gestation of pregnancy
CPT/HCPCS: 59412; 85025; 86850; 86900; 86901; J7120; 59025

== ENCOUNTER 2022-11-30 20:40 | Inpatient (IN) | payer BC ==
--- OUTSIDE RECORDS SUMMARY | 2022-11-30 20:44 | EXTERNAL MEDICAL SUMMARY RPT | Continuity of Care Document ---
:1990 Author Organization [facility] Address [address] [place] [address] Phone Care Team Providers Name Role Phone Unavailable Unavailable Unavailable Shiva Feliciano Md Unavailable Unavailable Alex, Provider Unavailable Unavailable Allergies No information. Encounters No information. Functional Status No information. Immunizations No information. Medications date description facility 2022-10-06 00:00 prenat.vits,lavon,[id number] All 2022-10-08 00:00 prenat.vits,lavon,[id number] All 2022-11-12 00:00 prenat.vits,lavon,[id number]-voitp All Problems No information. Procedures No information. Results/Labs test date author facility value unit interpret ation Result panel 1 (unknown) (no date) (unknown) All (no value) (units unknown ) (unknown) Result panel 2 (unknown) (no date) (unknown) All (no value) (units unknown ) (unknown) Result panel 3 (unknown) (no date) (unknown) All (no value) (units unknown ) (unknown) Result panel 4 (unknown) (no date) (unknown) All (no value) (units unknown ) (unknown) Result panel 5 (unknown) (no date) (unknown) All (no value) (units unknown ) (unknown) Result panel 6 (unknown) (no date) (unknown) All (no value) (units unknown ) (unknown) Result panel 7 (unknown) (no date) (unknown) All (no value) (units unknown ) (unknown) Result panel 8 (unknown) (no date) (unknown) All (no value) (units unknown ) (unknown) Result panel 9 (unknown) (no date) (unknown) All (no value) (units unknown ) (unknown) Result panel 10 (unknown) (no date) (unknown) All (no value) (units unknown ) (unknown) Result panel 11 (unknown) (no date) (unknown) All (no value) (units unknown ) (unknown) Result panel 12 (unknown) (no date) (unknown) All (no value) (units unknown ) (unknown) Result panel 13 (unknown) (no date) (unknown) All (no value) (units unknown ) (unknown) Result panel 14 (unknown) (no date) (unknown) All (no value) (units unknown ) (unknown) Result panel 15 (unknown) (no date) (unknown) All (no value) (units unknown ) (unknown) Result panel 16 (unknown) (no date) (unknown) All (no value) (units unknown ) (unknown) Result panel 17 (unknown) (no date) (unknown) All (no value) (units unknown ) (unknown) Result panel 18 (unknown) (no date) (unknown) All (no value) (units unknown ) (unknown) Result panel 19 (unknown) (no date) (unknown) All (no value) (units unknown ) (unknown) Result panel 20 (unknown) (no date) (unknown) All (no value) (units unknown ) (unknown) Result panel 21 (unknown) (no date) (unknown) All (no value) (units unknown ) (unknown) Result panel 22 (unknown) (no date) (unknown) All (no value) (units unknown ) (unknown) Result panel 23 (unknown) (no date) (unknown) All (no value) (units unknown ) (unknown) Result panel 24 (unknown) (no date) (unknown) All (no value) (units unknown ) (unknown) Result panel 25 (unknown) (no date) (unknown) All (no value) (units unknown ) (unknown) Result panel 26 (unknown) (no date) (unknown) All (no value) (units unknown ) (unknown) Result panel 27 (unknown) (no date) (unknown) All (no value) (units unknown ) (unknown) Result panel 28 (unknown) (no date) (unknown) All (no value) (units unknown ) (unknown) Result panel 29 (unknown) (no date) (unknown) All (no value) (units unknown ) (unknown) Result panel 30 (unknown) (no date) (unknown) All (no value) (units unknown ) (unknown) Result panel 31 (unknown) (no date) (unknown) All (no value) (units unknown ) (unknown) Result panel 32 (unknown) (no date) (unknown) All (no value) (units unknown ) (unknown) Result panel 33 (unknown) (no date) (unknown) All (no value) (units unknown ) (unknown) Result panel 34 (unknown) (no date) (unknown) All (no value) (units unknown ) (unknown) Result panel 35 (unknown) (no date) (unknown) All (no value) (units unknown ) (unknown) Social History No information. Vital Signs No information.
[2022-11-30] MEDS ORDERED: lidocaine 1% 20 ML MDV ID PRN (21:02)
[2022-11-30] MEDS ORDERED: CARBOPROST TROMETHAMINE 250 MCG/ML AMP IM PRN (21:02)
[2022-11-30] MEDS ORDERED: OXYTOCIN 10 UNIT/ML VIAL IM PRN (21:02)
[2022-11-30] MEDS ORDERED: METHYLERGONOVINE 0.2 MG/ML VIAL IM PRN (21:02)
[2022-11-30] MEDS ORDERED: LABETALOL 20 MG/4 ML SYRINGE IVP PRN ×3 (21:02)
[2022-11-30] MEDS ORDERED: TERBUTALINE 1 MG/ML VIAL SUBQ PRN (21:02)
[2022-11-30] MEDS ORDERED: TRANEXAMIC ACID IN NACL 1,000 MG/100 ML BAG IV PRN (21:02)
[2022-11-30] MEDS ORDERED: fentaNYL 100 MCG/2 ML VIAL IVP PRN (21:02)
[2022-11-30] MEDS ORDERED: SODIUM CHLORIDE FLUSH 0.9% 10 ML SYRINGE IVP PRN (21:02)
[2022-11-30] MEDS ORDERED: OXYTOCIN/SODIUM CHLORIDE 500 ML IV PRN (21:02)
[2022-11-30] MEDS ORDERED: AMPICILLIN 2 GM in SODIUM CHLORIDE 0.9% MINIBAG 100 ML IV ONE (21:02)
[2022-11-30] MEDS ORDERED: hydrALAZINE INJ 20 MG/ML VIAL IVP PRN ×2 (21:02)
[2022-11-30] MEDS ORDERED: NIFEdipine 10 MG CAPSULE PO PRN (21:02)
[2022-11-30] MEDS ORDERED: miSOPROStoL 200 MCG TABLET BC PRN (21:02)
[2022-11-30] MEDS ORDERED: miSOPROStoL 200 MCG TABLET PR PRN (21:02)
[2022-11-30 21:06] LABS: BASOPHILS % (AUTO) 0.2 %; EOSINOPHILS # (AUTO) 0.1 10^3/uL (0.0-0.7); EOSINOPHILS % (AUTO) 0.8 %; HCT - HEMATOCRIT 31.3 % (37.0-47.0); HGB - HEMOGLOBIN 10.2 g/dL (12.0-16.0); LYMPHOCYTES # (AUTO) 1.6 10^3/uL (1.5-3.5); LYMPHOCYTES % (AUTO) 17.5 %; MEAN CORPUSCULAR HEMOGLOBIN 25.8 pg (27.0-31.0); MEAN CORPUSCULAR HGB CONC 32.6 g/dL (32.0-36.0); MEAN PLATELET VOLUME 11.2 fL (7.9-10.8); MONOCYTES # (AUTO) 0.7 10^3/uL (0.0-1.0); MONOCYTES % (AUTO) 7.2 %; NEUTROPHILS # (AUTO) 6.9 10^3/uL (1.5-6.6); NEUTROPHILS % (AUTO) 73.9 %; PLT - PLATELET COUNT 222 10^3/uL (130-450); RED BLOOD COUNT 3.96 10^6/uL (4.20-5.40); RED CELL DISTRIBUTION WIDTH 16.3 % (12.0-15.0); WHITE BLOOD COUNT 9.3 x10^3/uL (4.8-10.8)
[2022-11-30] MEDS ORDERED: LACTATED RINGERS 1,000 ML ONE (21:16)
[2022-11-30] MEDS: LACTATED RINGERS 1,000 ML IV SCH (21:30)
[2022-11-30] MEDS ORDERED: ROPIVACAINE 0.2% 200 MG/100 ML BAG EP ONE (21:33)
--- NOTE | 2022-11-30 22:03 | ANESTHESIA ---
Pre-Anesthesia VS, & Labs - Diagnosis active labor - Procedure vaginal delivery Vital Signs: Temp Pulse Resp BP Pulse Ox O2 Flow Rate 36.8 C 120 H 20 142/70 H 100 11/30/22 21:38 11/30/22 21:00 11/30/22 21:00 11/30/22 21:00 11/30/22 21:00 Height: 5 ft 8 in - NPO Other (clear liquids) - Is Patient ?: Yes - Lab Results Current Lab Results: Laboratory Tests 11/30/22 21:00: WBC 9.3, RBC 3.96 L, Hgb 10.2 L, Hct 31.3 L, MCV 79.0 L, MCH 2 5.8 L, MCHC 32.6, RDW 16.3 H, Plt Count 222, MPV 11.2 H, Neut # (Auto) 6.9 H, Lymph # (Auto) 1.6, [place] # (Auto) 0.7, Eos # (Auto) 0.1, Baso # (Auto) 0.0, Absolute Nucleated RBC 0.00, Nucleated RBC % 0.0 Lab results reviewed: Yes Fish Bones: 11/30/22 21:00 Home Medications and Allergies Active Medications Carboprost Tromethamine (Carboprost Tromethamine 250 Mcg/Ml Amp) 250 mcg IM .ONCE PRN PRN Reason: Hemorrhage Fentanyl (Fentanyl 100 Mcg/2 Ml Vial) 50 mcg IVP Q1H PRN PRN Reason: Severe Pain (score 7-10) Hydralazine HCl (Hydralazine Inj 20 Mg/Ml Vial) 5 - 10 mg IVP Q20M PRN; Protocol PRN Reason: SBP> or= 160 OR DBP> or= 110 Hydralazine HCl (Hydralazine Inj 20 Mg/Ml Vial) 10 mg IVP .ONCE PRN; Protocol PRN Reason: SBP> or= 160 OR DBP> or= 110 Oxytocin/Sodium Chloride (Pitocin/Sodium Chloride) 500 mls @ 999 mls/hr IV PRN PRN; Protocol PRN Reason: POST- HEMORR PREVENTION Tranexamic Acid (Tranexamic 1,000 Mg/100ml-Nacl) 1,000 mg in 100 mls @ 600 mls/hr IV Q30M PRN PRN Reason: EBL >1200mL and within 3hr Lactated Ringer's (Lr) 1,000 mls @ 125 mls/hr IV .Q8H LULI Ampicillin Sodium 1 gm/ Sodium (Chloride) 100 mls @ 200 mls/hr IV Q4H LULI Labetalol HCl (Labetalol 20 Mg/4 Ml Syringe) 20 - 80 mg IVP Q10M PRN; Protocol PRN Reason: SBP> or= 160 OR DBP> or= 110 Labetalol HCl (Labetalol 20 Mg/4 Ml Syringe) 20 mg IVP .ONCE PRN; Protocol PRN Reason: SBP> or= 160 OR DBP> or= 110 Labetalol HCl (Labetalol 20 Mg/4 Ml Syringe) 20 - 40 mg IVP Q10M PRN; Protocol PRN Reason: SBP> or= 160 OR DBP> or= 110 Lidocaine HCl (Lidocaine 1% 20 Ml Mdv) 20 ml ID .ONCE PRN PRN Reason: PERINEAL REPAIR Stop: 12/03/22 21:02 Methylergonovine Maleate (Methylergonovine 0.2 Mg/Ml Vial) 0.2 mg IM .ONCE PRN PRN Reason: Hemorrhage Misoprostol (Misoprostol 200 Mcg Tablet) 600 mcg BC .ONCE PRN PRN Reason: Hemorrhage Misoprostol (Misoprostol 200 Mcg Tablet) 800 mcg LA .ONCE PRN PRN Reason: Hemorrhage Nifedipine (Nifedipine 10 Mg Capsule) 10 - 20 mg PO Q20M PRN; Protocol PRN Reason: SBP> or= 160 OR DBP> or= 110 Oxytocin (Oxytocin 10 Unit/Ml Vial) 10 unit IM .ONCE PRN PRN Reason: Step One if no IV access. Sodium Chloride (Sodium Chloride Flush 0.9% 10 Ml Syringe) 10 ml IVP PRN PRN PRN Reason: NEEDED PER PROVIDER ORDERS Sodium Chloride (Sodium Chloride Flush 0.9% 10 Ml Syringe) 10 ml IVP Q8H LULI Terbutaline Sulfate (Terbutaline 1 Mg/Ml Vial) 0.25 mg SUBQ .ONCE PRN PRN Reason: Tachystole Allergies/Adverse Reactions: Allergies Allergy/AdvReac Type Severity Reaction Status Date / Time No Known Drug Allergies Allergy Verified 08/27/21 11:20 Anes History & Medical History - Anesthetic History Anesthesia Complications: reports: No previous complications - Medical History Cardiovascular: reports: None Pulmonary: reports: None Gastrointestinal: reports: None Urinary: reports: None Neuro: reports: None Musculoskeletal: reports: None Endocrine/Autoimmune: reports: None Blood Disorders: reports: None Skin: reports: None Smoking Status: Never smoker Psychosocial: reports: No issues indicated History of Cancer?: No - Surgical History Orthopedic: reports: Other Exam General: Alert, Oriented x3, Cooperative, No acute distress Dental: WNL Mouth Openin Fingerbreadth Neck Mobility: Normal Mallampati classification: II Thyromental Distance: 4-6 cm Mental/Cognitive Status: Alert/Oriented X3, Normal for patient Plan Anesthesia Type: Epidural Consent for Procedure(s) Verified and Reviewed: Yes Code Status: Attempt Resuscitation ASA classification: 2-Mild systemic disease Is this case an emergency?: No
[2022-11-30] MEDS ORDERED: ePHEDrine 50 MG/ML VIAL IVP PRN (22:04)
[2022-11-30] MEDS ORDERED: NALOXONE 0.4 MG/ML VIAL IVP PRN (22:04)
[2022-11-30] MEDS ORDERED: ROPIVACAINE 0.2% 200 MG/100 ML BAG EP PRN (22:04)
--- NOTE | 2022-11-30 22:42 | HISTORY & PHYSICAL EXAMINATION ---
Admit History - Visit Reason Visit Reason: Contractions, Bloody show - : 3 Parity: 1 Premature: 0 Ectopic: 0 : 1 Care: positive: [facility] Risk/History: positive: None Complications This : positive: None Smoking Status: Never smoker - Mother's Labs Mother's Blood Type: positive: A Mother's RH: positive: Positive GBS: positive: Group B Step Negative Rubella Status: positive: Immune Meds/Allgy - Home Medications Home Medications: Ambulatory Orders Medication Instructions Recorded Confirmed Acetaminophen [Acetaminophen Extra 1,000 mg PO Q8H PRN #60 tablet 08/28/21 Strength] Docusate Sodium 100Mg Capsule 100 - 200 mg PO BID PRN #60 cap 08/28/21 [Colace 100Mg Capsule] Ibuprofen [Motrin] 600 mg PO Q6H PRN #60 tab 08/28/21 - Allergies Allergies/Adverse Reactions: Allergies Allergy/AdvReac Type Severity Reaction Status Date / Time No Known Drug Allergies Allergy Verified 08/27/21 11:20 Review of Systems - Constitutional Constitutional: denies: Fatigue, Fever, Chills, Night sweats - Eyes Eyes: denies: Blurred vision, Spots in vision, Dipolpia - Cardiovascular Cariovascular: denies: Irregular heart rate, Palpitations, Chest pain, Edema - Respiratory Respiratory: denies: Cough, Wheezing, SOB at rest - Gastrointestinal Gastrointestinal: denies: Constipation, Diarrhea, Nausea, Vomiting - Genitourinary Genitourinary: denies: Dysuria - Integumentary Integumentary: denies: Rash, Pruritis - Neurological Neurological: denies: Headache - Psychiatric Psychiatric: denies: Depression, Anxiety Physical - Abdominal Exam Vital Signs: Temp Pulse Resp BP Pulse Ox O2 Flow Rate 36.8 C 120 H 20 142/70 H 100 11/30/22 21:38 11/30/22 21:00 11/30/22 21:00 11/30/22 21:00 11/30/22 21:00 Contraction Frequency (min/apart): 3-5 Contraction Intensity: positive: Strong Uterine Resting Tone: positive: Soft - Monitoring Heart Rate Baseline: 140 Strip Review: positive: Category I - Presentation Presentation: positive: Vertex - Vaginal Exam Membranes: positive: Membranes intact Dilation (in cm): 5 Effacement (%): 75 Station: positive: -3 Cervical Position: positive: Posterior - Speculum Exam Speculum Exam Performed: positive: No Plan for Labor - Plan For Labor I expect patient to be DC'd or transferred within 96 hours.: Yes Plan for Labor: HPI: Rebekah is a 32yo @ 41.3wks gestation by LMP c/w 11.6wk U/S who presents to [facility] with c/o contractions. She reports the contractions have increased in frequency and intensity since this afternoon and she is requesting an epidural for pain management. Upon arrival contractions palpate strong every 3-5 minutes with soft resting tone. SVE 5/75/-3, and vertex with intact membranes. FHR baseline 140s, moderate variability, + accels, no decels. She reports +FM. Reports light pink bloody show noted when using the bathroom but denies vaginal bleeding or leakage of fluid otherwise. She is a patient of [facility] and has received consistent care for the duration of her which has remained uncomplicated with the exception of anemia which was treated with iron infusion x 3, and unstable lie at 37wks gestation with failed ECV attempt x 1 and successful ECV attempt following. She has remained vertex since that time and was verified vertex today. She is also noted to be GBS positive. She will be admitted to [facility] for expectant management. Dating criteria: LMP:02/13/2022 Initial U/S @ 11.6wks c/w LMP dating Serial exams - agree production control coordinating clerk Hx: Term NSVB x 1. SAB x1. Last pap 02/2020 - WNL, No hx of abnormals. Medical Hx: no significant Surgical Hx: hip/leg surgery as a child s/p trampoline accident Family Hx: Heart disease - PGF; Diabetes - PGM, aunt; Depression -father; PE- father; Stroke- grandparents Meds: PNV Allergies: None known Social: , lives with Parker. She is a stay at home mom. No tobacco, ETOH or recreational drug use. Caffeine intake- none. course: A positive, antibody negative Rubella immune; varicella non-immune Influenza vaccine - declined Covid-19 vaccine - declined FAS WNL. Left fundal placenta, no previa. Size c/w dating (EFW 73%tile). 3VC. Glucola 115 GBS POSITIVE Physical exam: Normocephalic, atraumatic Heart RRR w/o M/G/R Lungs CTAB Abdomen gravid, soft, nontender FHR baseline 140s, moderate variability, + accels, no decels Contractions palpate firm every 3-5 minutes with soft resting tone SVE 5/75/-3, vertex. Intact membranes. Bilateral LE's trace edema. Mood is good. Assessment: 32yo @ 41.3wks gestation by LMP c/w 11.6wk U/S Postdates GBS positive FHR Category I Anemia complicating Plan: Admit to [facility] for expectant management. Initiate ampicillin for GBS prophylaxis per protocol. Continuous monitoring. Epidural per maternal request - anesthesia notified. Anticipate .
[2022-12-01] MEDS: AMPICILLIN 1 GM in SODIUM CHLORIDE 0.9% MINIBAG 100 ML IV SCH ×2 (01:17→05:13)
[2022-12-01] MEDS: LACTATED RINGERS 1,000 ML IV SCH (03:20)
[2022-12-01] MEDS ORDERED: LIDOCAINE MPF 2%-EPI 1:200000 20 ML VIAL ONE (05:34)
--- NOTE | 2022-12-01 05:34 | PROVIDER PROGRESS NOTE ---
Labor Progress Note - Uterine Monitoring Uterine Monitoring Mode: positive: External toco (I was called in to evaluate th e urgent situation that this patient had. This patient is a 32-year-old @ 41.3 weeks been pushing over an hour. She received the epidural and tachycardia was noted with thick meconium stained fluid.) Contraction Intensity: positive: Strong Uterine Resting Tone: positive: Soft - Monitoring Monitor Mode: positive: External ultrasound Heart Rate Variability: positive: Moderate (6-25 bmp) Accelerations: positive: Present, 15x15 Decelerations: positive: Variable, Prolonged (>2x10 min) Strip Review: positive: Category II - Vaginal Exam Dilation (in cm): 10 Effacement (%): 100 Cervical Position: Midposition - Labor Progress Note Labor Progress Note/Additional Text: Because of tachycardia with a prolonged deceleration was the reason for this consultation. I did do examination and I confirmed and surgical team was called. Primary section was indicated for failure to progress with tachycardia with a prolonged deceleration with the presence of thick meconium stained fluid.
[2022-12-01] MEDS ORDERED: ceFAZolin 1 GM VIAL ONE (05:59)
[2022-12-01] MEDS ORDERED: SODIUM CHLORIDE 0.9% 10 ML VIAL IVP ONE (06:19)
[2022-12-01] MEDS ORDERED: LACTATED RINGERS 1,000 ML IV ONE (06:46)
--- NOTE | 2022-12-01 06:46 | DELIVERY NOTE ---
Delivery Note - Infant Delivery Method Infant Delivery Method: positive: Primary - Presentation Presentation: positive: ROP - right occiput posterior - Amniotic Fluid Description Amniotic Fluid Description: positive: Thick meconium - Superior: positive: Suctioned sex: positive: Female - Placenta Placenta: positive: Expressed, Meconium stained - Estimated Blood Loss Estimated Blood Loss (in cc): 500 - Post Delivery Events Post Delivery Events: positive: No post delivery events - Delivery Comments (Free Text/Narrative) Delivery Comments (Free Text/Narrative): Pre-op diagnosis: Intrauterine at 41.3 weeks failure to progress with presence of thick meconium stained fluid and class II heart tone Postop diagnosis the same with persistent occipitoposterior position Operation primary low transverse cervical section Surgeon: Dr. Yap Director Public Service certified nurse harbor patrol police Kenya Patterson she needs to be there to help to retract the retractor and assist section The patient was seen in the room number 2102. The risk, benefit, complication, treatment options, and expected outcomes were discussed with the patient. The patient concurred with the proposed plan, giving informed consent. The patient was taken to operating room, identified as Rebekah Meadwos and the procedure verified as a delivery. A timeout was held and the above information confirmed. After confirmed adequacy of epidural anesthesia, the patient was draped and prepped in the usual sterile manner. A Rohit- Fontanez incision was made and carried down through the subcutaneous tissue to the fascia. Fascial incision was made and extended transversely. The fascia was from the underlying rectus tissue superiorly and inferiorly. The peritoneum was identified and entered. Peritoneal incision was extended longitudinally. A self-retaining retractor was placed. A low transverse uterine incision was made just above the uterovesical peritoneal reflection and the uterine cavity was entered. Copious thick meconium stained fluid was yielded. The incision was extended bluntly cephalocaudally. Delivered from ROP presentation was a girl with score of 8 at 1 minutes and 8 at 5 minutes. The fetus was delivered gently and atraumatically. Care was taken not to hyperextend or place too much traction on the cervical spine. After umbilical cord was clamped and cut cord blood was obtained for evaluation. The baby was handed to RN and radio television technical director who were present in the room. The placenta was removed intact and appeared normal. The uterine outline tubes and ovaries appeared normal. The uterine incision was closed with a running suture of 0 v-lock in 2 layers. Hemostasis was observed. Lavage was carried out until clear. The peritoneum was closed with a 2-0 Vicryl in running sutures. The fascia was then reapproximated with the running sutures of 0 Vicryl. The subcutaneous was closed with 0 Vicryl in interrupted sutures. The skin was reapproximated with a 4-0 Vicryl in continuous running sutures. Instrument, sponge, and needle counts were correct prior to abdominal closure and at the conclusion of the case. The patient was transferred to the recovery room in stable condition. EBL 500 millimeter
--- NOTE | 2022-12-01 06:48 | PROVIDER PROGRESS NOTE ---
Labor Progress Note - Uterine Monitoring Uterine Monitoring Mode: positive: External toco Contraction Frequency (min/apart): 3-6 Contraction Intensity: positive: Strong Uterine Resting Tone: positive: Soft - Monitoring Monitor Mode: positive: External ultrasound Heart Rate Baseline: 150 Heart Rate Variability: positive: Moderate (6-25 bmp) Accelerations: positive: Present, 15x15 Decelerations: positive: Variable, Recurrent (>50% x20 min) Strip Review: positive: Category II - Vaginal Exam Dilation (in cm): 8 Effacement (%): 100 Station: 0 - Labor Progress Note Labor Progress Note/Additional Text: S: Patient comfortable with epidural. Her and son are supportive at the bedside. O: FHR baseline 150s, moderate variability, + accels, recurrent variable decelerations, intermittent early decelerations, intermittent late decelerations, overall reassuring Contractions palpate firm every 3-6 minutes with soft resting tone. SVE 8/100/0. Vertex. SROM x 4 hrs, moderate meconium stained amniotic fluid A: 32yo @ 41.3wks gestation by LMP c/w 11.6wk U/S Postdates Active labor GBS positive FHR Category II Meconium stained amniotic fluid P: Continue expectant management. Continuous monitoring Maintain epidural for pain management. Continue Ampicillin for GBS prophylaxis per protocol. Anticipate .
[2022-12-01] MEDS ORDERED: KETOROLAC 30 MG/ML VIAL ONE (06:52)
--- NOTE | 2022-12-01 06:59 | PROVIDER PROGRESS NOTE ---
Labor Progress Note - Uterine Monitoring Uterine Monitoring Mode: positive: External toco Contraction Frequency (min/apart): 3-6 Contraction Intensity: positive: Strong Uterine Resting Tone: positive: Soft - Monitoring Monitor Mode: positive: External ultrasound Heart Rate Baseline: 170 Heart Rate Variability: positive: Moderate (6-25 bmp) Accelerations: positive: Absent Decelerations: positive: Late, Variable, Recurrent (>50% x20 min) Strip Review: positive: Category III - Vaginal Exam Dilation (in cm): 10 Effacement (%): 100 Station: 0 - Labor Progress Note Labor Progress Note/Additional Text: S: Feeling comfortable with epidural however feeling discouraged with her lack of progress and expresses concern verbally for well being when discussing decelerations with and after contractions. O: FHR baseline 170s, moderate variability, no accels, recurrent late decelerations, recurrent variable decelerations Contractions palpate strong every 3-6 minutes with soft resting tone SVE c/c/0 and following 1.5hrs of active pushing occicput remains at 0 station in OP position. SROM x 8hrs Thick meconium amniotic fluid A: 32yo @ 41.4wks gestation by LMP c/w 11.6wk U/S Postdates intolerance of labor Failure to decend GBS positive FHR Category III P: will call order clerk physician notified and presence requested for evaluation for delivery. Pt agrees and feels comfortable with the plan for delivery. When anger control counselor physician present at the bedside the care was handed to physician.
[2022-12-01] MEDS ORDERED: oxyCODONE 5 MG TABLET PO PRN (07:06)
[2022-12-01] MEDS ORDERED: OXYTOCIN/SODIUM CHLORIDE 500 ML IV PRN (07:06)
[2022-12-01] MEDS ORDERED: NIFEdipine 10 MG CAPSULE PO PRN (07:06)
[2022-12-01] MEDS ORDERED: LABETALOL 20 MG/4 ML SYRINGE IVP PRN (07:06)
[2022-12-01] MEDS ORDERED: hydrALAZINE INJ 20 MG/ML VIAL IVP PRN ×2 (07:06)
[2022-12-01] MEDS ORDERED: NALOXONE 0.4 MG/ML VIAL IVP PRN (07:06)
[2022-12-01] MEDS ORDERED: LACTATED RINGERS 1,000 ML IV SCH (08:00)
[2022-12-01] MEDS: ACETAMINOPHEN 500 MG TABLET PO SCH ×3 (08:54→23:58)
[2022-12-01] MEDS: KETOROLAC 30 MG/ML VIAL IVP SCH ×3 (12:53→23:58)
[2022-12-01] MEDS: DOCUSATE SODIUM 100 MG CAPSULE PO SCH ×2 (12:53→21:03)
[2022-12-01] MEDS: SODIUM CHLORIDE FLUSH 0.9% 10 ML SYRINGE IVP SCH ×2 (12:53→18:30)
--- NOTE | 2022-12-01 14:45 | ANESTHESIA POST OP EVALUATION ---
Anesthesia Post Eval - Post Anesthesia Eval Vitals: Last Vital Signs Temp 36.7 C 12/01/22 13:00 Pulse 81 12/01/22 13:00 Resp 16 12/01/22 13:00 BP 108/52 L 12/01/22 13:00 Pulse Ox 98 12/01/22 13:00 O2 Flow Rate CV Function Including HR & BP: Stable Pain Control: Satisfactory Nausea & Vomiting: Negative Mental Status: Baseline Respiratory Status: Airway Patent Hydration Status: Satisfactory Anesthesia Complications: None
[2022-12-01] MEDS: LIDOCAINE PATCH 5% TOP PRN (21:55)
[2022-12-02 07:56] LABS: HCT - HEMATOCRIT 25.2 % (37.0-47.0); HGB - HEMOGLOBIN 8.1 g/dL (12.0-16.0); MEAN CORPUSCULAR HEMOGLOBIN 26.4 pg (27.0-31.0); MEAN CORPUSCULAR HGB CONC 32.1 g/dL (32.0-36.0); MEAN CORPUSCULAR VOLUME 82.1 fL (81.0-99.0); MEAN PLATELET VOLUME 10.9 fL (7.9-10.8); RED BLOOD COUNT 3.07 10^6/uL (4.20-5.40); RED CELL DISTRIBUTION WIDTH 16.8 % (12.0-15.0); WHITE BLOOD COUNT 7.3 x10^3/uL (4.8-10.8)
[2022-12-02] MEDS: ACETAMINOPHEN 500 MG TABLET PO SCH ×2 (08:09→19:38)
[2022-12-02] MEDS: IBUPROFEN 600 MG TABLET PO SCH ×3 (08:10→21:37)
[2022-12-02] MEDS: KETOROLAC 30 MG/ML VIAL IVP SCH (10:06)
[2022-12-02] MEDS: DOCUSATE SODIUM 100 MG CAPSULE PO SCH (10:50)
--- NOTE | 2022-12-02 11:35 | PROVIDER PROGRESS NOTE ---
Subjective - Subjective Subjective: Subjective Patient reports she is doing well. Lochia appropriate. Denies heavy bleeding. Ambulating. Pelvic and abdominal pain well-controlled. Tolerating oral intake. Diet: Regular. Voiding without difficulty. Passing flatus. Denies BM. Patient is bonding with baby in room Breast feeding going well. Denies feeling lightheaded, dizzy or excessively fatigued. Objective General: Alert, oriented, no apparent distress. Cardiovascular: Regular rate. Regular rhythm. Lungs: No increased work of breathing. Abdomen: Uterus firm. Below umbilicus. No guarding or rebound. Extremities: No pain on palpation. No cords palpated. Distal pulses intact. Incision: Clean, dry, and intact. Assessment and Plan day 1. -Routine care -Anticipate discharge tomorrow Objective - Vital Signs/Intake & Output Vital Signs: Vital Signs x48h Temp Pulse Resp BP 12/02/22 09:00 98.1 F 82 16 118/62 12/02/22 04:30 97.9 F 82 14 119/53 L Intake & Output: Intake & Output 11/29/22 11/30/22 12/01/22 12/02/22 23:59 23:59 23:59 23:59 Intake Total 100 2200.000 Output Total 150 2510 300 Balance -50 -310.000 -300 - Lab Results Fish Bones: 12/02/22 07:39 Other Labs: Lab Results x24hrs 12/02/22 Range/Units 07:39 WBC 7.3 (4.8-10.8) x10^3/uL RBC 3.07 L (4.20-5.40) 10^6/uL Hgb 8.1 L (12.0-16.0) g/dL Hct 25.2 L (37.0-47.0) % MCV 82.1 (81.0-99.0) fL MCH 26.4 L (27.0-31.0) pg MCHC 32.1 (32.0-36.0) g/dL RDW 16.8 H (12.0-15.0) % Plt Count 172 (130-450) 10^3/uL MPV 10.9 H (7.9-10.8) fL
[2022-12-02] MEDS ORDERED: diphenhydrAMINE 25 MG CAPSULE PO STA (15:58)
[2022-12-02] MEDS ORDERED: HYDROCORTISONE 1% CREAM 28 GM TUBE TOP PRN (15:59)
[2022-12-02] MEDS ORDERED: traMADol 50 MG TABLET PO PRN (17:32)
[2022-12-02] MEDS: LIDOCAINE PATCH 5% TOP PRN (21:37)
[2022-12-03] MEDS: ACETAMINOPHEN 500 MG TABLET PO SCH ×2 (03:48→11:19)
[2022-12-03] MEDS: IBUPROFEN 600 MG TABLET PO SCH ×2 (03:49→09:30)
[2022-12-03 08:52] VITALS: BP 122/70
[2022-12-03] MEDS: DOCUSATE SODIUM 100 MG CAPSULE PO SCH (09:30)
--- NOTE | 2022-12-03 09:32 | Discharge Plan ---
Discharge Plan Problem Reviewed?: Yes Disposition: Home, Self Care Condition: Good Prescriptions: Acetaminophen [Acetaminophen Extra Strength] 1,000 mg PO Q8H PRN #60 tablet PRN Reason: Pain Docusate Sodium 100Mg Capsule [Colace 100Mg Capsule] 100 - 200 mg PO BID PRN #60 cap PRN Reason: Constipation Ibuprofen [Motrin] 600 mg PO Q6H PRN #30 tab PRN Reason: Pain traMADol [Ultram] 50 mg PO ONCE #20 tablet Activity Restrictions: Additional Comments Shower Restrictions: No Instruction Topics: Vaginal After No Smoking: If you smoke, Please STOP! Call for help. Follow-up with: Shiva Feliciano MD [Provider Admit Priv/Credential] -
--- NOTE | 2022-12-03 09:46 | DISCHARGE SUMMARY ---
Discharge Summary Admit Date: 11/30/22 Discharge Date: 12/03/22 Discharging Provider: Shiva Feliciano MD Condition at Discharge: Good Discharge Disposition: 01 Home, Self Care - DIAGNOSES Admission Diagnoses: 41 weeks gestation GBS positive Late term labor Discharge Diagnoses with Status of Each Condition: 41 weeks gestation: Delivered GBS positive: Delivered Late term labor: Delivered Category 2 tracing: Delivered Failure to descend: Delivered Meconium stained fluid: Delivered Status post primary low-transverse section: Stable - HPI History of Present Illness: Subjective Patient reports she is doing well. Lochia appropriate. Denies heavy bleeding. Ambulating. Pelvic and abdominal pain well-controlled. Tolerating oral intake. Diet: Regular. Voiding without difficulty. Passing flatus. Had bowel movement. Patient is bonding with baby in room Breast feeding going well. Denies feeling lightheaded, dizzy or excessively fatigued. Objective General: Alert, oriented, no apparent distress. Cardiovascular: Regular rate. Regular rhythm. Lungs: No increased work of breathing. Abdomen: Uterus firm. Below umbilicus. No guarding or rebound. Developed a rash yesterday afternoon, moderate improvement on low abdomen. Upper abdomen rash small but unchanged from yesterday. Extremities: No pain on palpation. No cords palpated. Distal pulses intact. Incision: Clean, dry, and intact. - HOSPITAL COURSE Hospital Course: Patient was admitted at 41 weeks gestation for late term labor. She progressed to centimeters and was pushing, but had a category 2 tracing, thick meconium, and failure to descend, so she was taken to the operating room for primary low- transverse section. section was uncomplicated. 's initial gestation was uncomplicated, and remained with mother in the room. course was overall uneventful, but day 1 after taking a dose of oxycodone, she developed a rash in her abdomen, but this was unusual as it was in the shape of the tocometer as well as the lower part of her belly. This improved with hydrocortisone cream. Pain control was good. She desired to go home on day 2. She was counseled on surgical aftercare as well as warnings for depression. She was discharged in good condition. - ALLERGIES Allergies/Adverse Reactions: Allergies Allergy/AdvReac Type Severity Reaction Status Date / Time No Known Drug Allergies Allergy Verified 08/27/21 11:20 - MEDICATIONS Home Medications: Ambulatory Orders Medication Instructions Recorded Confirmed Acetaminophen [Acetaminophen Extra 1,000 mg PO Q8H PRN #60 tablet 08/28/21 Strength] Docusate Sodium 100Mg Capsule 100 - 200 mg PO BID PRN #60 cap 08/28/21 [Colace 100Mg Capsule] Ibuprofen [Motrin] 600 mg PO Q6H PRN #60 tab 08/28/21 Acetaminophen [Acetaminophen Extra 1,000 mg PO Q8H PRN #60 tablet 12/02/22 Strength] Docusate Sodium 100Mg Capsule 100 - 200 mg PO BID PRN #60 cap 12/02/22 [Colace 100Mg Capsule] Ibuprofen [Motrin] 600 mg PO Q6H PRN #30 tab 12/02/22 traMADol [Ultram] 50 mg PO ONCE #20 tablet 12/02/22 - LABS Result Diagrams: 12/02/22 07:39 - FOLLOW UP Follow Up: With Shiva Feliciano MD in 1 to 2 weeks at [facility] - TIME SPENT Time Spent in Discharge (Minutes): 30
[2022-12-03] MEDS ORDERED: FERRIC GLUCONATE 125 MG in SODIUM CHLORIDE 0.9% 100ML 100 ML IV ONE (09:50)
--- NOTE | 2022-12-03 12:44 | ANESTHESIA POST OP EVALUATION ---
Anesthesia Post Eval - Post Anesthesia Eval Vitals: Last Vital Signs Temp 36.5 C 12/03/22 08:00 Pulse 74 12/03/22 08:00 Resp 16 12/03/22 08:00 BP 122/70 12/03/22 08:00 Pulse Ox 100 12/03/22 08:00 O2 Flow Rate CV Function Including HR & BP: Stable Pain Control: Satisfactory Nausea & Vomiting: Negative Mental Status: Baseline Respiratory Status: Airway Patent Hydration Status: Satisfactory Anesthesia Complications: None
--- NOTE | 2022-12-03 13:39 | Labor Flowsheet ---
Labor Flowsheet Datetime Report Generated by CPN: 12/03/2022 13:39 Datetime: 12/03/2022 08:22 VITAL SIGNS NBP Sys/Pam/Mean (mmHg): 122 : 70 : 78 Pulse: 77 LaborFlag: Labor Datetime: 12/01/2022 13:04 SpO2 (%): 98 Datetime: 12/01/2022 05:45 Communication Comments: To OR Datetime: 12/01/2022 05:41 UTERINE ACTIVITY Monitor Mode: External Frequency (min): 2-3 Quality: Strong Duration (sec): 50-70 Pattern: Normal: <= 5 Contractions in 10 Minutes Resting Tone (Palpate): Relaxed ASSESSMENT A Monitor Mode: External US FHR Baseline Rate : 160 Variability: Moderate 6-25 bpm Accelerations: None Decelerations: Variable Category: Category II Datetime: 12/01/2022 05:36 Anesthesia Comments: A. Yousif [employer] at bedside Datetime: 12/01/2022 05:30 FHR Baseline Changes: Tachycardia Datetime: 12/01/2022 05:24 I/O Interventions: Marquez Cath Inserted Patient Care Comments: Vaginal and periurethral swelling , hematuria Datetime: 12/01/2022 05:20 Provider Reviewed Strip: Yes Strip Reviewed by: Dr. Davis COMMUNICATION Communication: Provider at Bedside Provider Notified (Name): Dr. Jyung Datetime: 12/01/2022 05:13 MEDICATIONS Antibiotics: Ampicillin IV 1 Gm Datetime: 12/01/2022 05:02 Stage 2 Comments: cesaation of pushing effort with plan to proceed with section. Datetime: 12/01/2022 05:00 Membrane Status: Meconium Amniotic Fluid Color: Heavy Meconium Datetime: 12/01/2022 04:50 Temperature (C): 37.4 Datetime: 12/01/2022 04:44 STAGE 2 Pushing: No Urge to Push Pushing Position: Pushing with Contractions; Pushing Left Side; Pushing Lithotomy Pushing Progress: No Descent with Effective Pushing Datetime: 12/01/2022 04:30 Comments: indeterminate baseline. HR 160-190, audible deccelerations of FHR to 90's Datetime: 12/01/2022 04:00 Contraction Comments: RN continuously at bedside Datetime: 12/01/2022 03:53 Patient Position/Activity: Right Lateral Datetime: 12/01/2022 03:43 Exam by: Leonardo CNM Vaginal Exam Comments: anterior lip Datetime: 12/01/2022 03:41 Notification Reason: Status Datetime: 12/01/2022 03:30 Actions for Decelerations: Side to Side; Blood Pressure; Provider Notified Datetime: 12/01/2022 03:09 Temperature Route: Oral PAIN Pain Scale: 0 Datetime: 12/01/2022 03:05 PATIENT CARE IV/Blood Work: IV Bolus Started; IV Bolus Given ml @ 500 Datetime: 12/01/2022 02:49 VAGINAL EXAM Dilatation (cm): 9.0 Effacement (%): 100 Station: 0 Datetime: 12/01/2022 01:00 Monitor Interventions for UA: Jessie Adjusted Datetime: 12/01/2022 00:30 Monitor Interventions for FHR: Ultrasound Adjusted Datetime: 11/30/2022 22:45 Vital Sign Comments: lateral up arm Datetime: 11/30/2022 22:15 Pain Presence: None/Denies Datetime: 11/30/2022 21:56 Membranes Rupture Method: Spontaneous Amniotic Fluid Amount: Large Amniotic Fluid Odor: None Epidural Procedure Other: Pump Started Datetime: 11/30/2022 21:43 Epidural Procedure: Loading Dose Datetime: 11/30/2022 21:34 PROCEDURE TIME OUT Procedure Verify: Correct Patient Position Epidural Positioning: Sitting Datetime: 11/30/2022 21:32 ANESTHESIA Anesthesia Plans: Epidural Datetime: 11/30/2022 21:12 Pain Coping: Requesting Pain Medication or Epidural Pain Assessment Comments: A. Yousif [employer] contacted for epidural Datetime: 11/30/2022 21:00 Stage of : Labor
== END 2022-12-03 13:38 | disposition home or self-care (01) | DRG 788 ==
LOC: FBP 20:40
PROVIDERS: ADMIT Nurse Practitioner Obstetrics & Gynecology; ATTEND Obstetrics & Gynecology
PROC: 10D00Z1 Extraction of Products of Conception, Low, Open Approach (ICD-10-PCS; principal; 2022-12-01 05:45)
DX: O99.824 Streptococcus B carrier state complicating childbirth (principal); O76 Abnormality in fetal heart rate and rhythm complicating labor and delivery; O77.0 Labor and delivery complicated by meconium in amniotic fluid; O48.0 Post-term pregnancy; Z3A.41 41 weeks gestation of pregnancy; Z37.0 Single live birth; O62.9 Abnormality of forces of labor, unspecified; O32.4XX0 Maternal care for high head at term, not applicable or unspecified; O90.89 Other complications of the puerperium, not elsewhere classified; R21 Rash and other nonspecific skin eruption; O99.419 Diseases of the circulatory system complicating pregnancy, unspecified trimester; O99.019 Anemia complicating pregnancy, unspecified trimester
CPT/HCPCS: 36415; 85025; 85027; 86850; 86900; 86901; A9270; J2916; J7120; 99215